=== PATIENT | female | born 1985 | race Caucasian/White ===

== ENCOUNTER 2016-12-05 09:04 | Emergency (ER) | payer BC ==
[2016-12-05] MEDS ORDERED: ALBUTEROL SULFATE 2.5 MG/0.5 ML INH NEB SOLN As Ordered ONE (10:17)
[2016-12-05] MEDS ORDERED: ONDANSETRON 4MG/2ML VIAL (J2405) As Ordered ONE (10:18)
[2016-12-05] MEDS ORDERED: KETOROLAC 30 MG/ML VIAL (J1885) As Ordered ONE (10:18)
[2016-12-05 10:30] LABS: BASO # 0.1 K/mm3 (0.0-0.2); BASO % 1.1 % (0.0-1.0); EOS # 0.2 K/mm3 (0.0-0.50); LARGE UNSTAINED CELL # 0.2 K/mm3 (0.0-0.4); LARGE UNSTAINED CELL % 1.8 % (0.0-4.0); LYMPH # 2.6 K/mm3 (1.5-4.5); LYMPH % 29.3 % (24.0-44.0); MEAN CORPUSCULAR HEMOGLOBIN 30.3 pg (27.0-33.0); MEAN CORPUSCULAR HGB CONC 33.2 g/dl (32.0-36.5); MEAN CORPUSCULAR VOLUME 91.4 fl (80.0-96.0); MONO # 0.4 K/mm3 (0.0-0.8); MONO % 4.9 % (0.0-5.0); NEUTROPHILS # 5.2 K/mm3 (1.8-7.7); NEUTROPHILS % 60.9 % (36.0-66.0); PLATELET COUNT, AUTOMATED 201 k/mm3 (150-450); RED CELL DISTRIBUTION WIDTH 12.5 % (11.5-14.5); WHITE BLOOD COUNT 8.5 K/mm3 (4.0-10.0)
[2016-12-05 10:54] LABS: ALBUMIN 4.6 GM/DL (3.2-5.2); ALBUMIN/GLOBULIN RATIO 1.48 (1.00-1.93); ALKALINE PHOSPHATASE 67 U/L (45-117); ALT/SGPT 22 U/L (12-78); AMYLASE 52 U/L (25-115); ANION GAP 8 MEQ/L (8-16); AST/SGOT 13 U/L (15-37); BILIRUBIN,DIRECT 0.1 MG/DL (0.0-0.2); BILIRUBIN,TOTAL 0.5 MG/DL (0.2-1.0); BLOOD UREA NITROGEN 8 MG/DL (7-18); CALCIUM LEVEL 9.3 MG/DL (8.5-10.1); CARBON DIOXIDE LEVEL 25 MEQ/L (21-32); CHLORIDE LEVEL 110 MEQ/L (98-107); CREATININE FOR GFR 0.76 MG/DL (0.55-1.02); FREE T4 0.95 NG/DL (0.76-1.46); GLOMERULAR FILTRATION RATE > 60.0 (>60); GLUCOSE, FASTING 86 MG/DL (70-105); POTASSIUM SERUM 3.6 MEQ/L (3.5-5.1); SODIUM LEVEL 143 MEQ/L (136-145); TOTAL PROTEIN 7.7 GM/DL (6.4-8.2)
--- NOTE | 2016-12-05 11:16 | REP ---
Chest two views HISTORY: Chest pain Comparison: 05/01/2015 The lungs are clear. The heart is normal in size. The pulmonary vasculature is normal in appearance. The bony structure is intact. IMPRESSION: No acute disease. Signed by Mohinder Montes MD 12/05/2016 11:08 A
--- NOTE | 2016-12-05 11:19 | REP ---
Limited abdominal ultrasound with attention to the right upper quadrant, 12/05/2016 Indication: Biliary colic Comparison: CT of the pelvis 05/12/2015 Findings: Gallbladder measures 7 by 2.7 by 2.5 cm, without cholelithiasis or pericholecystic fluid. The gallbladder wall is 3 mm transverse dimension upper normal range. There is a negative sonographic Gao's sign. Common bile duct is 3.4 mm transverse dimension, within normal limits. Hepatic parenchyma is homogeneous in echotexture without focal lesions. The pancreas is unremarkable in appearance. Right kidney measures 11.8 x 4.9 by 6 cm, without hydronephrosis. Renal cortical echogenicity is within normal limits. Impression: No evidence of cholelithiasis or biliary dilatation Unremarkable liver and pancreas Right kidney without hydronephrosis Signed by yKleigh Hussein MD 12/05/2016 11:10 A
[2016-12-05] MEDS ORDERED: PERCOCET 5MG/325MG TAB As Ordered ONE (11:43)
--- NOTE | 2016-12-05 11:51 | EDDOCDS ---
Nurse's Notes [facility] Name: Yoselyn Qiu Age: 31 yrs Sex: Female : 1985 Arrival Date: 12/05/2016 Time: 09:04 Bed I6 / 28 Private MD: NIRMALA SHIPMAN Diagnosis: Upper abdominal pain, unspecified;Nausea with vomiting, unspecified;Wheezing Presentation: 12/05 09:17 Presenting complaint: Patient states: fever up to like 102 last night. had the chills. srm hasnt felt good for fever weeks. symptoms of diarrhea and abd pain and back pain for a few weeks. now having right groin pain. also felt choked up and tight in upper chest. Presenting complaint: Patient states: states HR was 156 at home. Adult Sepsis Screening: The patient does not have new or worsening altered mentation. Patient's respiratory rate is less than 22. Systolic blood pressure is greater than 100. Patient has a qSOFA score of 0- Negative Sepsis Screen. Suicide/Homicide risk assessment- the patient denies having any suicidal and/or homicidal ideations and does not present with any other emotional, behavioral or mental health complaints. Status: Patient is not a media services director or dependent. Transition of care: patient was not received from another setting of care. 09:17 Acuity: AURELIA Level 3 srm 09:17 Method Of Arrival: Walkin/Carried/Asstd srm Triage Assessment: 09:20 General: Appears in no apparent distress, Behavior is appropriate for age, cooperative. srm Pain: Pain currently is 7 out of 10 on a pain scale. HIV screening NA for this visit Offered previously. [place]: 09:20 LMP N/A - control method srm Historical: - Allergies: Amoxicillin; IV Dye; - Home Meds: 1. Prilosec 20 mg Oral cpDR 2 caps 2 times per day - PMHx: Hypothyroidism; Von Willebrand Disease; - PSHx: D & C; Colonoscopy; - Social history: Smoking status: Patient uses tobacco products, current every day smoker. No barriers to communication noted, The patient speaks fluent Palestinian, Speaks appropriately for age. - Family history: Not pertinent. - : The pt / caregiver states he / she is not on anticoagulants. Home medication list is obtained from the patient. - Exposure Risk Screening:: None identified. Screenin:04 Screening information is obtained from the patient. Fall risk: No risks identified. kr3 Assistance ADL's: requires no assistance with activities of daily living. Abuse/DV Screen: The patient / caregiver reports he/she is: not in a situation that causes fear, pain or injury. Nutritional screening: No deficits noted. Advance Directives: Currently, there is no health care proxy. home support is adequate. Assessment: 10:23 Adult Sepsis Screening: The patient does not have new or worsening altered mentation. dsf Patient's respiratory rate is less than 22. Systolic blood pressure is greater than 100. Patient has a qSOFA score of 0- Negative Sepsis Screen. General: Appears in no apparent distress, Behavior is appropriate for age, cooperative. Pain: Location: right upper quadrant and left upper quadrant Pain currently is 7 out of 10 on a pain scale. Quality of pain is described as sharp. Neurological: Level of Consciousness is awake, alert. Cardiovascular: Capillary refill < 3 seconds. Respiratory: Airway is patent Respiratory effort is even, unlabored, Respiratory pattern is regular, symmetrical. GI: Abdomen is non- distended Reports upper abd pain. Derm: Skin is pink, warm & dry. 11:03 Reassessment: Patient states feeling better. kr3 11:46 General: Appears in no apparent distress, comfortable, Behavior is appropriate for age, dsf cooperative. Pain: Location: left upper quadrant and right upper quadrant Pain currently is 7 out of 10 on a pain scale. Neurological: Level of Consciousness is awake, alert. Cardiovascular: Capillary refill < 3 seconds Heart tones S1 S2 present. Respiratory: Airway is patent Respiratory effort is even, unlabored, Respiratory pattern is regular, symmetrical, Breath sounds are clear bilaterally. GI: Abdomen is non- distended Bowel sounds present X 4 quads. Abd is soft and non tender X 4 quads. Derm: Skin is pink, warm & dry. Vital Signs: 09:06 BP 162 / 96; Pulse 120; Resp 18; Temp 97.9(O); Pulse Ox 100% ; Weight 58.97 kg; Height cmb 5 ft. 2 in. (157.48 cm); Pain 7/10; 11:04 Pain 5/10; kr3 11:43 BP 149 / 90; Pulse 84; Resp 20; Temp 98.2; Pulse Ox 99% ; Pain 7/10; jam1 09:06 Body Mass Index 23.78 (58.97 kg, 157.48 cm) cmb Vitals: 11:05 Log In Time: December 05, 2016 at 09:00. kr3 ED Course: 09:05 Patient visited by Jaja Tucker. cmb 09:05 Patient moved to Waiting cmb 09:06 NIRMALA SHIPMAN is Private Physician. cmb 09:08 Patient moved to Pre RCE cmb 09:18 Triage Initiated srm 09:23 Patient moved to Family 1 kr3 09:30 Elena Butterfield PA-C is PHCP. dt4 09:30 Prince Pastor MD is Attending Physician. dt4 09:30 Patient visited by Elena Butterfield PA-C. dt4 10:00 Patient moved to I mk4 10:23 Patient visited by Jennifer French,DOROTA. kr3 10:23 Cardiac Injury Profile Sent. dsf 10:23 Troponin Sent. dsf 10:23 Amylase Sent. dsf 10:23 Basic Metabolic Profile Sent. dsf 10:23 CBC with Diff Sent. dsf 10:23 Lipase Sent. dsf 10:23 Liver Profile Sent. dsf 10:23 Inserted saline lock: 18 gauge in right antecubital area The patient tolerated the dsf procedure well. 10:24 Patient visited by She Delaney RN. dsf 10:44 Patient moved to Ultrasound am10 10:56 Patient moved to Radiology am10 11:00 Patient moved to bh4 11:03 Patient visited by Jennifer French,DOROTA. kr3 11:05 The patient / caregiver is instructed regarding the plan of care and ED course. Patient moses has correct armband on for positive identification. Placed in gown. Bed in low position. Call light in reach. Side rails up X 1. 11:28 [facility] Payment Agreement was scanned into [employer] and attached to record. lg 11:37 Patient visited by Elena Butterfield PA-C. dt4 11:38 Your own Physician is Referral Physician. dt4 11:41 Chest, 2 View (pa\E\lat) Returned. EDMS 11:41 US Abd Limited Returned. EDMS 11:47 Discontinued lock intact, bleeding controlled, pressure dressing applied, No dsf redness/swelling at site. No procedures done that require assistance. Administered Medications: 10:00 Drug: Albuterol 2.5 mg [albuterol sulfate 2.5 mg/0.5 mL solution for nebulization (0.5 cs15 mL)] Route: Nebulizer; 10:20 Drug: Ondansetron 4 mg [ondansetron HCl 2 mg/mL intravenous solution (2 mL)] Route: kr3 IVP; Site: right antecubital; 11:04 Follow up: Response: Nausea is decreased kr3 10:22 Drug: ketorolac 30 mg [ketorolac 30 mg/mL (1 mL) injection solution (1 mL)] Route: IVP; kr3 Site: right antecubital; 11:04 Follow up: Pain 5/10 Adult; Response: Pain is decreased kr3 10:23 Drug: NS 0.9% 1000 ml [sodium chloride 0.9 % intravenous solution] Route: IV; Rate: kr3 bolus; Site: right antecubital; 11:47 Follow up: IV Status: Completed infusion; IV Intake: 1000ml dsf 11:45 Drug: oxyCODONE-acetaminophen 1 tabs [oxycodone-acetaminophen 5 mg-325 mg tablet (1 dsf tabs)] Route: PO; 11:50 Follow up: Response: Confirmed pt not driving.; Pt left department before re-evaluation dsf is appropriate Point of Care Testing: Urine : 10:17 hCG Reading: Negative; jam1 Ranges: Intake: 11:47 IV: 1000.00ml; Total: 1000.00ml. dsf RT: 10:24 Initial Med Neb Given as ordered. Respiratory: Respiratory effort is unlabored, cs15 Respiratory pattern is regular Breath sounds are clear bilaterally. Order Results: Lab Order: Amylase; SPEC'M 12/05/16 10:18 Test: AMYLASE; Value: 52; Range: 25-115; Units: U/L; Status: F Lab Order: Basic Metabolic Profile; SPEC'M 12/05/16 10:18 Test: GLUCOSE, FASTING; Value: 86; Range: 70-105; Units: MG/DL; Status: F Test: BLOOD UREA NITROGEN; Value: 8; Range: 7-18; Units: MG/DL; Status: F Test: CREATININE FOR GFR; Value: 0.76; Range: 0.55-1.02; Units: MG/DL; Status: F Test: GLOMERULAR FILTRATION RATE; Value: > 60.0; Range: >60; Status: F Test: SODIUM LEVEL; Value: 143; Range: 136-145; Units: MEQ/L; Status: F Test: POTASSIUM SERUM; Value: 3.6; Range: 3.5-5.1; Units: MEQ/L; Status: F Test: CHLORIDE LEVEL; Value: 110; Range: 98-107; Abnormal: Above high normal; Units: MEQ/L; Status: F Test: CARBON DIOXIDE LEVEL; Value: 25; Range: 21-32; Units: MEQ/L; Status: F Test: ANION GAP; Value: 8; Range: 8-16; Units: MEQ/L; Status: F Test: CALCIUM LEVEL; Value: 9.3; Range: 8.5-10.1; Units: MG/DL; Status: F Test Note: ; Units are mL/min/1.73 m2 Chronic Kidney Disease Staging per NKF: Stage I & II GFR >=60 Normal to Mildly Decreased Stage III GFR 30-59 Moderately Decreased Stage IV GFR 15-29 Severely Decreased Stage V GFR <15 Very Little GFR Left ESRD GFR <15 on TROLLEY OPERATOR Lab Order: CBC with Diff; SPEC'M 12/05/16 10:18 Test: WHITE BLOOD COUNT; Value: 8.5; Range: 4.0-10.0; Units: K/mm3; Status: F Test: RED BLOOD COUNT; Value: 4.91; Range: 4.00-5.40; Units: M/mm3; Status: F Test: HEMOGLOBIN; Value: 14.9; Range: 12.0-16.0; Units: g/dl; Status: F Test: HEMATOCRIT; Value: 44.8; Range: 36.0-47.0; Units: %; Status: F Test: MEAN CORPUSCULAR VOLUME; Value: 91.4; Range: 80.0-96.0; Units: fl; Status: F Test: MEAN CORPUSCULAR HEMOGLOBIN; Value: 30.3; Range: 27.0-33.0; Units: pg; Status: F Test: MEAN CORPUSCULAR HGB CONC; Value: 33.2; Range: 32.0-36.5; Units: g/dl; Status: F Test: RED CELL DISTRIBUTION WIDTH; Value: 12.5; Range: 11.5-14.5; Units: %; Status: F Test: PLATELET COUNT, AUTOMATED; Value: 201; Range: 150-450; Units: k/mm3; Status: F Test: NEUTROPHILS %; Value: 60.9; Range: 36.0-66.0; Units: %; Status: F Test: LYMPH %; Value: 29.3; Range: 24.0-44.0; Units: %; Status: F Test: MONO %; Value: 4.9; Range: 0.0-5.0; Units: %; Status: F Test: EOS %; Value: 2.0; Range: 0.0-3.0; Units: %; Status: F Test: BASO %; Value: 1.1; Range: 0.0-1.0; Abnormal: Above high normal; Units: %; Status: F Test: LARGE UNSTAINED CELL %; Value: 1.8; Range: 0.0-4.0; Units: %; Status: F Test: NEUTROPHILS #; Value: 5.2; Range: 1.8-7.7; Units: K/mm3; Status: F Test: LYMPH #; Value: 2.6; Range: 1.5-4.5; Units: K/mm3; Status: F Test: MONO #; Value: 0.4; Range: 0.0-0.8; Units: K/mm3; Status: F Test: EOS #; Value: 0.2; Range: 0.0-0.50; Units: K/mm3; Status: F Test: BASO #; Value: 0.1; Range: 0.0-0.2; Units: K/mm3; Status: F Test: LARGE UNSTAINED CELL #; Value: 0.2; Range: 0.0-0.4; Units: K/mm3; Status: F Lab Order: Lipase; SPEC'M 12/05/16 10:18 Test: LIPASE; Value: 127; Range: 73-393; Units: U/L; Status: F Lab Order: Liver Profile; SPEC'M 12/05/16 10:18 Test: AST/SGOT; Value: 13; Range: 15-37; Abnormal: Below low normal; Units: U/L; Status: F Test: ALT/SGPT; Value: 22; Range: 12-78; Units: U/L; Status: F Test: ALKALINE PHOSPHATASE; Value: 67; Range: 45-117; Units: U/L; Status: F Test: BILIRUBIN,TOTAL; Value: 0.5; Range: 0.2-1.0; Units: MG/DL; Status: F Test: BILIRUBIN,DIRECT; Value: 0.1; Range: 0.0-0.2; Units: MG/DL; Status: F Test: TOTAL PROTEIN; Value: 7.7; Range: 6.4-8.2; Units: GM/DL; Status: F Test: ALBUMIN; Value: 4.6; Range: 3.2-5.2; Units: GM/DL; Status: F Test: ALBUMIN/GLOBULIN RATIO; Value: 1.48; Range: 1.00-1.93; Status: F Lab Order: Troponin; SPEC'M 12/05/16 10:18 Test: TROPONIN I; Value: < 0.02; Range: < 0.10; Units: NG/ML; Status: F Test Note: ; Troponin I Reference Interval for [employer] LOCI: 99th Percentile= 0.00-0.045 ng/ml Risk Stratification: <= 0.10 ng/ml Decreased Risk for Adverse Clinical Events. 0.10-1.50 ng/ml Increased Risk for Adverse Clinical Events. Evaluation of additional criterion and/or repeat testing in 2-6 hours is suggested to rule out myocardial damage. >= 1.50 ng/ml Indicative of Myocardial Injury. Lab Order: Cardiac Injury Profile; SPEC'M 12/05/16 10:18 Test: CPK CREATINE PHOSPHOKINASE; Value: 72; Range: 26-192; Units: U/L; Status: F Test: CK-MB VALUE MASS; Value: 1.1; Range: 0.0-3.6; Units: NG/ML; Status: F Test: MB/CK RELATIVE INDEX; Value: 1.52; Range: < OR =4; Status: F Test Note: ; DIAGNOSIS CRITERIA MMB ng/ml Relative Index (RI) NON-AMI < or = 5 N/A PARIKH ZONE > 5 < or = 4 AMI > 5 > 4 Lab Order: TSH with Free T4; SPEC'M 12/05/16 10:18 Test: THYROID STIMULATING HORMONE; Value: 1.430; Range: 0.358-3.740; Units: uIU/ML; Status: F Test: FREE T4; Value: 0.95; Range: 0.76-1.46; Units: NG/DL; Status: F Radiology Order: Chest, 2 View (pa\E\lat) Test: Chest, 2 View (pa\E\lat) REASON FOR EXAMINATION: Chest Pain; Chest two views; ; HISTORY: Chest pain; ; Comparison: 05/01/2015; ; The lungs are clear. The heart is normal in size. The pulmonary vasculature is; normal in appearance. The bony structure is intact.; ; IMPRESSION: No acute disease.; ; ; Signed by; Mohinder Montes MD 12/05/2016 11:08 A; Radiology Order: US Abd Limited Test: US Abd Limited REASON FOR EXAMINATION: Biliary Colic; Limited abdominal ultrasound with attention to the right upper quadrant,; 12/05/2016; ; Indication: Biliary colic; ; Comparison: CT of the pelvis 05/12/2015; ; Findings: Gallbladder measures 7 by 2.7 by 2.5 cm, without cholelithiasis or; pericholecystic fluid. The gallbladder wall is 3 mm transverse dimension upper; normal range. There is a negative sonographic Gao's sign.; ; Common bile duct is 3.4 mm transverse dimension, within normal limits.; ; Hepatic parenchyma is homogeneous in echotexture without focal lesions.; ; The pancreas is unremarkable in appearance.; ; Right kidney measures 11.8 x 4.9 by 6 cm, without hydronephrosis. Renal cortical; echogenicity is within normal limits.; ; Impression:; ; No evidence of cholelithiasis or biliary dilatation; ; Unremarkable liver and pancreas; ; Right kidney without hydronephrosis; ; ; Signed by; Kyleigh Hussein MD 12/05/2016 11:10 A; Outcome: 11:04 Ultrasound Study completed. kr3 11:39 Discharge ordered by Provider. dt4 11:46 Discharge Assessment: Patient awake, alert and oriented x 3. No cognitive and/or dsf functional deficits noted. Patient verbalized understanding of disposition instructions. patient administered narcotics - yes. Pt provided with safe discharge. 11:50 The following High Risk Discharge criteria are identified: None. Discharged to home dsf ambulatory. Condition: stable. Discharge instructions given to patient, Instructed on discharge instructions, follow up and referral plans. medication usage, no driving heavy equipment, Demonstrated understanding of instructions, medications, Pt was receptive of discharge instructions/ teaching. Prescriptions given X 1. Property sent home with patient. 11:50 Patient left the ED. dsf Signatures: Dispatcher [employer] EDMS Emily Roy, RN RN srm Nidia Gao, FIBERGLASSER FIBERGLASSER jam1 Nay Castillo, Kendall Reg lg Jennifer French,RN RN kr3 Uyen Mensah Beth 4 She Delaney,RN RN f Jaja Tucker Margaret RN RN mk4 Elena Butterfield PAErma PAErma dt4 Ulices Velez,RT RT cs15 DIAMOND
--- NOTE | 2016-12-05 11:51 | EDDOCDS ---
Physician Documentation [facility] Name: Yoselyn Qiu Age: 31 yrs Sex: Female : 1985 Arrival Date: 12/05/2016 Time: 09:04 Bed I6 / 28 Private MD: NIRMALA SHIPMAN Disposition: 12/05/16 11:39 Discharged to Home/Self Care. Impression: Upper abdominal pain, unspecified, Nausea with vomiting, unspecified, Wheezing. - Condition is Stable. - Discharge Instructions: Abdominal Pain, Adult, Nausea and Vomiting. - Prescriptions for Percocet 5- 325 mg Oral Tablet - take 1 tablet by ORAL route every 6 hours As needed MDD: 4 tabs; 15 tablet. - Medication Reconciliation, Local Pharmacy Hours form. - Follow up: Emergency Department; When: As needed; Reason: Worsening of conditions. Follow up: Your own Physician; When: AT YOUR SCHEDULED APPOINTMENT ON 01/15/17; Reason: Wound/Symptom Recheck, Recheck today's complaints, Continuance of care. - Problem is new. - Symptoms have improved. Historical: - Allergies: Amoxicillin; IV Dye; - Home Meds: 1. Prilosec 20 mg Oral cpDR 2 caps 2 times per day - PMHx: Hypothyroidism; Von Willebrand Disease; - PSHx: D & C; Colonoscopy; - Social history: Smoking status: Patient uses tobacco products, current every day smoker. No barriers to communication noted, The patient speaks fluent Italian, Speaks appropriately for age. - Family history: Not pertinent. - : The pt / caregiver states he / she is not on anticoagulants. Home medication list is obtained from the patient. - Exposure Risk Screening:: None identified. 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 2 in. (157.48 cm); Pain 7/10; 11:04 Pain 5/10; kr3 11:43 BP 149 / 90; Pulse 84; Resp 20; Temp 98.2; Pulse Ox 99% ; Pain 7/10; jam1 09:06 Body Mass Index 23.78 (58.97 kg, 157.48 cm) cmb MDM: 09:40 Financial registration complete. lg 09:53 NS 0.9% 1000 ml IV at bolus once ordered. dt4 09:53 Ondansetron 4 mg IVP once ordered. dt4 09:53 ketorolac 30 mg IVP once ordered. dt4 09:53 IV Saline Lock ordered. dt4 09:53 Undress patient appropriately for examination ordered. dt4 09:53 Albuterol 2.5 mg Nebulizer once ordered. dt4 09:53 UCG by Nursing ordered. dt4 09:54 Amylase Ordered. EDMS 09:54 Basic Metabolic Profile Ordered. EDMS 09:54 CBC with Diff Ordered. EDMS 09:54 Lipase Ordered. EDMS 09:54 Liver Profile Ordered. EDMS 09:54 Troponin Ordered. EDMS 09:54 Cardiac Injury Profile Ordered. EDMS 09:54 TSH with Free T4 Ordered. EDMS 09:54 NOTHING BY MOUTH+DIET ordered. EDMS 09:54 Chest, 2 View (pa\E\lat) Ordered. EDMS 09:54 ECG WITH READING ER PHYS+CARDIAG ordered. EDMS 09:55 US Abd Limited Ordered. EDMS 10:02 ED course: PT C/O MULTIPLE SYMPTOMS TODAY INCLUDING, NOT FEELING WELL OVER THE PAST 2 dt4 YEARS, CHEST PAIN, ABDOMINAL PAIN, N/V. PT STATES SHE STOPPED TAKING HER THYROID MEDICATION 2 YEARS AGO AND CURRENTLY DOES NOT HAVE A PCP. STATES ESTABLISHING WITH DR. SHIPMAN ON 01/15/17. . 11:05 Basic Metabolic Profile Reviewed. dt4 11:05 CBC with Diff Reviewed. dt4 11:05 Liver Profile Reviewed. dt4 11:05 Amylase Reviewed. dt4 11:05 Lipase Reviewed. dt4 11:05 Troponin Reviewed. dt4 11:05 Cardiac Injury Profile Reviewed. dt4 11:05 TSH with Free T4 Reviewed. dt4 11:28 [facility] Payment Agreement was scanned into [employer] and attached to record. lg 11:37 oxyCODONE-acetaminophen 5 mg-325 mg 1 tabs PO once ordered. dt4 Point of Care Testing: Urine : 10:17 hCG Reading: Negative; jam1 Ranges: Administered Medications: 10:00 Drug: Albuterol 2.5 mg [albuterol sulfate 2.5 mg/0.5 mL solution for nebulization (0.5 cs15 mL)] Route: Nebulizer; 10:20 Drug: Ondansetron 4 mg [ondansetron HCl 2 mg/mL intravenous solution (2 mL)] Route: kr3 IVP; Site: right antecubital; 11:04 Follow up: Response: Nausea is decreased kr3 10:22 Drug: ketorolac 30 mg [ketorolac 30 mg/mL (1 mL) injection solution (1 mL)] Route: IVP; kr3 Site: right antecubital; 11:04 Follow up: Pain 5/10 Adult; Response: Pain is decreased kr3 10:23 Drug: NS 0.9% 1000 ml [sodium chloride 0.9 % intravenous solution] Route: IV; Rate: kr3 bolus; Site: right antecubital; 11:47 Follow up: IV Status: Completed infusion; IV Intake: 1000ml dsf 11:45 Drug: oxyCODONE-acetaminophen 1 tabs [oxycodone-acetaminophen 5 mg-325 mg tablet (1 dsf tabs)] Route: PO; 11:50 Follow up: Response: Confirmed pt not driving.; Pt left department before re-evaluation dsf is appropriate Signatures: Dispatcher [employer] EDEmily Lucas, DOROTA RN srm Nay Castillo, Reg Reg lg She Delaney RN RN dsf Elena Butterfield PA-C PA-C dt4 Jennifer French RN kr3 Ulices Velez RT cs15 The chart was reviewed and I authenticate all verbal orders and agree with the evaluation and treatment provided.Attachments: 11:28 [facility] Payment Agreement lg MTDD
--- NOTE | 2016-12-06 07:22 | ECGEPIP ---
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
--- NOTE | 2016-12-07 12:51 | EDDOCDS ---
Physician Documentation [facility] Name: Yoselyn Qiu Age: 31 yrs Sex: Female : 1985 Arrival Date: 12/05/2016 Time: 09:04 Bed I6 / 28 Private MD: NIRMALA SHIPMAN Disposition: 12/05/16 11:39 Discharged to Home/Self Care. Impression: Upper abdominal pain, unspecified, Nausea with vomiting, unspecified, Wheezing. - Condition is Stable. - Discharge Instructions: Abdominal Pain, Adult, Nausea and Vomiting. - Prescriptions for Percocet 5- 325 mg Oral Tablet - take 1 tablet by ORAL route every 6 hours As needed MDD: 4 tabs; 15 tablet. - Medication Reconciliation, Local Pharmacy Hours form. - Follow up: Emergency Department; When: As needed; Reason: Worsening of conditions. Follow up: Your own Physician; When: AT YOUR SCHEDULED APPOINTMENT ON 01/15/17; Reason: Wound/Symptom Recheck, Recheck today's complaints, Continuance of care. - Problem is new. - Symptoms have improved. Historical: - Allergies: Amoxicillin; IV Dye; - Home Meds: 1. Prilosec 20 mg Oral cpDR 2 caps 2 times per day - PMHx: Hypothyroidism; Von Willebrand Disease; - PSHx: D & C; Colonoscopy; - Social history: Smoking status: Patient uses tobacco products, current every day smoker. No barriers to communication noted, The patient speaks fluent Albanian, Speaks appropriately for age. - Family history: Not pertinent. - : The pt / caregiver states he / she is not on anticoagulants. Home medication list is obtained from the patient. - Exposure Risk Screening:: None identified. 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 2 in. (157.48 cm); Pain 7/10; 11:04 Pain 5/10; kr3 11:43 BP 149 / 90; Pulse 84; Resp 20; Temp 98.2; Pulse Ox 99% ; Pain 7/10; jam1 09:06 Body Mass Index 23.78 (58.97 kg, 157.48 cm) cmb MDM: 09:40 Financial registration complete. lg 09:53 NS 0.9% 1000 ml IV at bolus once ordered. dt4 09:53 Ondansetron 4 mg IVP once ordered. dt4 09:53 ketorolac 30 mg IVP once ordered. dt4 09:53 IV Saline Lock ordered. dt4 09:53 Undress patient appropriately for examination ordered. dt4 09:53 Albuterol 2.5 mg Nebulizer once ordered. dt4 09:53 UCG by Nursing ordered. dt4 09:54 Amylase Ordered. EDMS 09:54 Basic Metabolic Profile Ordered. EDMS 09:54 CBC with Diff Ordered. EDMS 09:54 Lipase Ordered. EDMS 09:54 Liver Profile Ordered. EDMS 09:54 Troponin Ordered. EDMS 09:54 Cardiac Injury Profile Ordered. EDMS 09:54 TSH with Free T4 Ordered. EDMS 09:54 NOTHING BY MOUTH+DIET ordered. EDMS 09:54 Chest, 2 View (pa\E\lat) Ordered. EDMS 09:54 ECG WITH READING ER PHYS+CARDIAG ordered. EDMS 09:55 US Abd Limited Ordered. EDMS 10:02 ED course: PT C/O MULTIPLE SYMPTOMS TODAY INCLUDING, NOT FEELING WELL OVER THE PAST 2 dt4 YEARS, CHEST PAIN, ABDOMINAL PAIN, N/V. PT STATES SHE STOPPED TAKING HER THYROID MEDICATION 2 YEARS AGO AND CURRENTLY DOES NOT HAVE A PCP. STATES ESTABLISHING WITH DR. SHIPMAN ON 01/15/17. . 11:05 Basic Metabolic Profile Reviewed. dt4 11:05 CBC with Diff Reviewed. dt4 11:05 Liver Profile Reviewed. dt4 11:05 Amylase Reviewed. dt4 11:05 Lipase Reviewed. dt4 11:05 Troponin Reviewed. dt4 11:05 Cardiac Injury Profile Reviewed. dt4 11:05 TSH with Free T4 Reviewed. dt4 11:28 [facility] [place] Agreement was scanned into [employer] and attached to record. lg 11:37 oxyCODONE-acetaminophen 5 mg-325 mg 1 tabs PO once ordered. dt4 13:39 T-Sheet-- Draft Copy was scanned into [employer] and attached to record. gb 13:39 ECG/EKG was scanned into [employer] and attached to record. gb 13:40 Radiology Report was scanned into [employer] and attached to record. gb Point of Care Testing: Urine : 10:17 hCG Reading: Negative; jam1 Ranges: Administered Medications: 10:00 Drug: Albuterol 2.5 mg [albuterol sulfate 2.5 mg/0.5 mL solution for nebulization (0.5 cs15 mL)] Route: Nebulizer; 10:20 Drug: Ondansetron 4 mg [ondansetron HCl 2 mg/mL intravenous solution (2 mL)] Route: kr3 IVP; Site: right antecubital; 11:04 Follow up: Response: Nausea is decreased kr3 10:22 Drug: ketorolac 30 mg [ketorolac 30 mg/mL (1 mL) injection solution (1 mL)] Route: IVP; kr3 Site: right antecubital; 11:04 Follow up: Pain 5/10 Adult; Response: Pain is decreased kr3 10:23 Drug: NS 0.9% 1000 ml [sodium chloride 0.9 % intravenous solution] Route: IV; Rate: kr3 bolus; Site: right antecubital; 11:47 Follow up: IV Status: Completed infusion; IV Intake: 1000ml dsf 11:45 Drug: oxyCODONE-acetaminophen 1 tabs [oxycodone-acetaminophen 5 mg-325 mg tablet (1 dsf tabs)] Route: PO; 11:50 Follow up: Response: Confirmed pt not driving.; Pt left department before re-evaluation dsf is appropriate Signatures: Dispatcher [employer] EDEmily Lucas RN RN [facility] Aleida Hobson, Reg Reg gb Nay Castillo, Reg Reg lg She Delaney RN RN dsf Elena Butterfield PA-C PA-C dt4 Jennifer French RN kr3 Ulices Velez RT cs15 The chart was reviewed and I authenticate all verbal orders and agree with the evaluation and treatment provided.Attachments: 11:28 [facility] [place] Agreement lg 13:39 T-Sheet-- Draft Copy gb 13:39 ECG/EKG gb Chart Complete MTDD
--- NOTE | 2016-12-07 12:51 | EDDOCDS ---
Nurse's Notes [facility] Name: Yoselyn Qiu Age: 31 yrs Sex: Female : 1985 Arrival Date: 12/05/2016 Time: 09:04 Bed I6 / 28 Private MD: NIRMALA SHIPMAN Diagnosis: Upper abdominal pain, unspecified;Nausea with vomiting, unspecified;Wheezing Presentation: 12/05 09:17 Presenting complaint: Patient states: fever up to like 102 last night. had the chills. srm hasnt felt good for fever weeks. symptoms of diarrhea and abd pain and back pain for a few weeks. now having right groin pain. also felt choked up and tight in upper chest. Presenting complaint: Patient states: states HR was 156 at home. Adult Sepsis Screening: The patient does not have new or worsening altered mentation. Patient's respiratory rate is less than 22. Systolic blood pressure is greater than 100. Patient has a qSOFA score of 0- Negative Sepsis Screen. Suicide/Homicide risk assessment- the patient denies having any suicidal and/or homicidal ideations and does not present with any other emotional, behavioral or mental health complaints. 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 Transition of care: patient was not received from another setting of care. 09:17 Acuity: AURELIA Level 3 srm 09:17 Method Of Arrival: Walkin/Carried/Asstd srm Triage Assessment: 09:20 General: Appears in no apparent distress, Behavior is appropriate for age, cooperative. srm Pain: Pain currently is 7 out of 10 on a pain scale. HIV screening NA for this visit Offered previously. 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 Prilosec 20 mg Oral cpDR 2 caps 2 times per day - PMHx: Hypothyroidism; Von Willebrand Disease; - PSHx: D & C; Colonoscopy; - Social history: Smoking status: Patient uses tobacco products, current every day smoker. No barriers to communication noted, The patient speaks fluent Hungarian, Speaks appropriately for age. - Family history: Not pertinent. - : The pt / caregiver states he / she is not on anticoagulants. Home medication list is obtained from the patient. - Exposure Risk Screening:: None identified. Screenin:04 Screening information is obtained from the patient. Fall risk: No risks identified. kr3 Assistance ADL's: requires no assistance with activities of daily living. Abuse/DV Screen: The patient / caregiver reports he/she is: not in a situation that causes fear, pain or injury. Nutritional screening: No deficits noted. Advance Directives: Currently, there is no health care proxy. home support is adequate. Assessment: 10:23 Adult Sepsis Screening: The patient does not have new or worsening altered mentation. dsf Patient's respiratory rate is less than 22. Systolic blood pressure is greater than 100. Patient has a qSOFA score of 0- Negative Sepsis Screen. General: Appears in no apparent distress, Behavior is appropriate for age, cooperative. Pain: Location: right upper quadrant and left upper quadrant Pain currently is 7 out of 10 on a pain scale. Quality of pain is described as sharp. Neurological: Level of Consciousness is awake, alert. Cardiovascular: Capillary refill < 3 seconds. Respiratory: Airway is patent Respiratory effort is even, unlabored, Respiratory pattern is regular, symmetrical. GI: Abdomen is non- distended Reports upper abd pain. Derm: Skin is pink, warm & dry. 11:03 Reassessment: Patient states feeling better. kr3 11:46 General: Appears in no apparent distress, comfortable, Behavior is appropriate for age, dsf cooperative. Pain: Location: left upper quadrant and right upper quadrant Pain currently is 7 out of 10 on a pain scale. Neurological: Level of Consciousness is awake, alert. Cardiovascular: Capillary refill < 3 seconds Heart tones S1 S2 present. Respiratory: Airway is patent Respiratory effort is even, unlabored, Respiratory pattern is regular, symmetrical, Breath sounds are clear bilaterally. GI: Abdomen is non- distended Bowel sounds present X 4 quads. Abd is soft and non tender X 4 quads. Derm: Skin is pink, warm & dry. Vital Signs: 09:06 BP 162 / 96; Pulse 120; Resp 18; Temp 97.9(O); Pulse Ox 100% ; Weight 58.97 kg; Height cmb 5 ft. 2 in. (157.48 cm); Pain 7/10; 11:04 Pain 5/10; kr3 11:43 BP 149 / 90; Pulse 84; Resp 20; Temp 98.2; Pulse Ox 99% ; Pain 7/10; jam1 09:06 Body Mass Index 23.78 (58.97 kg, 157.48 cm) cmb Vitals: 11:05 Log In Time: December 05, 2016 at 09:00. kr3 ED Course: 09:05 Patient visited by Jaja Tucker. cmb 09:05 Patient moved to Waiting cmb 09:06 NIRMALA SHIPMAN is Private Physician. cmb 09:08 Patient moved to Pre RCE cmb 09:18 Triage Initiated srm 09:23 Patient moved to Family 1 kr3 09:30 Elena Butterfield PA-C is PHCP. dt4 09:30 Prince Pastor MD is Attending Physician. dt4 09:30 Patient visited by Elena Butterfield PA-C. dt4 10:00 Patient moved to I mk4 10:23 Patient visited by Jennifer French,[place]. kr3 10:23 Cardiac Injury Profile Sent. dsf 10:23 Troponin Sent. dsf 10:23 Amylase Sent. dsf 10:23 Basic Metabolic Profile Sent. dsf 10:23 CBC with Diff Sent. dsf 10:23 Lipase Sent. dsf 10:23 Liver Profile Sent. dsf 10:23 Inserted saline lock: 18 gauge in right antecubital area The patient tolerated the dsf procedure well. 10:24 Patient visited by She Delaney RN. dsf 10:44 Patient moved to Ultrasound am10 10:56 Patient moved to Radiology am10 11:00 Patient moved to bh4 11:03 Patient visited by Jennifer French,[place]. kr3 11:05 The patient / caregiver is instructed regarding the plan of care and ED course. Patient moses has correct armband on for positive identification. Placed in gown. Bed in low position. Call light in reach. Side rails up X 1. 11:28 [facility] [place] Agreement was scanned into [employer] and attached to record. lg 11:37 Patient visited by Elena Butterfield PA-C. dt4 11:38 Your own Physician is Referral Physician. dt4 11:41 Chest, 2 View (pa\E\lat) Returned. EDMS 11:41 US Abd Limited Returned. EDMS 11:47 Discontinued lock intact, bleeding controlled, pressure dressing applied, No dsf redness/swelling at site. No procedures done that require assistance. 13:39 T-Sheet-- Draft Copy was scanned into [employer] and attached to record. gb 13:39 ECG/EKG was scanned into [employer] and attached to record. gb 13:40 Radiology Report was scanned into [employer] and attached to record. gb 12/06 07:41 EKG-ADULT Returned. EDMS Administered Medications: 12/05 10:00 Drug: Albuterol 2.5 mg [albuterol sulfate 2.5 mg/0.5 mL solution for nebulization (0.5 cs15 mL)] Route: Nebulizer; 10:20 Drug: Ondansetron 4 mg [ondansetron HCl 2 mg/mL intravenous solution (2 mL)] Route: kr3 IVP; Site: right antecubital; 11:04 Follow up: Response: Nausea is decreased kr3 10:22 Drug: ketorolac 30 mg [ketorolac 30 mg/mL (1 mL) injection solution (1 mL)] Route: IVP; kr3 Site: right antecubital; 11:04 Follow up: Pain 5/10 Adult; Response: Pain is decreased kr3 10:23 Drug: NS 0.9% 1000 ml [sodium chloride 0.9 % intravenous solution] Route: IV; Rate: kr3 bolus; Site: right antecubital; 11:47 Follow up: IV Status: Completed infusion; IV Intake: 1000ml dsf 11:45 Drug: oxyCODONE-acetaminophen 1 tabs [oxycodone-acetaminophen 5 mg-325 mg tablet (1 dsf tabs)] Route: PO; 11:50 Follow up: Response: Confirmed pt not driving.; Pt left department before re-evaluation dsf is appropriate Point of Care Testing: Urine : 10:17 hCG Reading: Negative; jam1 Ranges: Intake: 11:47 IV: 1000.00ml; Total: 1000.00ml. dsf RT: 10:24 Initial Med Neb Given as ordered. Respiratory: Respiratory effort is unlabored, cs15 Respiratory pattern is regular Breath sounds are clear bilaterally. Order Results: Lab Order: Amylase; SPEC'M 12/05/16 10:18 Test: AMYLASE; Value: 52; Range: 25-115; Units: U/L; Status: F Lab Order: Basic Metabolic Profile; SPEC'M 12/05/16 10:18 Test: GLUCOSE, FASTING; Value: 86; Range: 70-105; Units: MG/DL; Status: F Test: BLOOD UREA NITROGEN; Value: 8; Range: 7-18; Units: MG/DL; Status: F Test: CREATININE FOR GFR; Value: 0.76; Range: 0.55-1.02; Units: MG/DL; Status: F Test: GLOMERULAR FILTRATION RATE; Value: > 60.0; Range: >60; Status: F Test: SODIUM LEVEL; Value: 143; Range: 136-145; Units: MEQ/L; Status: F Test: POTASSIUM SERUM; Value: 3.6; Range: 3.5-5.1; Units: MEQ/L; Status: F Test: CHLORIDE LEVEL; Value: 110; Range: 98-107; Abnormal: Above high normal; Units: MEQ/L; Status: F Test: CARBON DIOXIDE LEVEL; Value: 25; Range: 21-32; Units: MEQ/L; Status: F Test: ANION GAP; Value: 8; Range: 8-16; Units: MEQ/L; Status: F Test: CALCIUM LEVEL; Value: 9.3; Range: 8.5-10.1; Units: MG/DL; Status: F Test Note: ; Units are mL/min/1.73 m2 Chronic Kidney Disease Staging per NKF: Stage I & II GFR >=60 Normal to Mildly Decreased Stage III GFR 30-59 Moderately Decreased Stage IV GFR 15-29 Severely Decreased Stage V GFR <15 Very Little GFR Left ESRD GFR <15 on FOOD CONCESSION MANAGER Lab Order: CBC with Diff; SPEC'M 12/05/16 10:18 Test: WHITE BLOOD COUNT; Value: 8.5; Range: 4.0-10.0; Units: K/mm3; Status: F Test: RED BLOOD COUNT; Value: 4.91; Range: 4.00-5.40; Units: M/mm3; Status: F Test: HEMOGLOBIN; Value: 14.9; Range: 12.0-16.0; Units: g/dl; Status: F Test: HEMATOCRIT; Value: 44.8; Range: 36.0-47.0; Units: %; Status: F Test: MEAN CORPUSCULAR VOLUME; Value: 91.4; Range: 80.0-96.0; Units: fl; Status: F Test: MEAN CORPUSCULAR HEMOGLOBIN; Value: 30.3; Range: 27.0-33.0; Units: pg; Status: F Test: MEAN CORPUSCULAR HGB CONC; Value: 33.2; Range: 32.0-36.5; Units: g/dl; Status: F Test: RED CELL DISTRIBUTION WIDTH; Value: 12.5; Range: 11.5-14.5; Units: %; Status: F Test: PLATELET COUNT, AUTOMATED; Value: 201; Range: 150-450; Units: k/mm3; Status: F Test: NEUTROPHILS %; Value: 60.9; Range: 36.0-66.0; Units: %; Status: F Test: LYMPH %; Value: 29.3; Range: 24.0-44.0; Units: %; Status: F Test: MONO %; Value: 4.9; Range: 0.0-5.0; Units: %; Status: F Test: EOS %; Value: 2.0; Range: 0.0-3.0; Units: %; Status: F Test: BASO %; Value: 1.1; Range: 0.0-1.0; Abnormal: Above high normal; Units: %; Status: F Test: LARGE UNSTAINED CELL %; Value: 1.8; Range: 0.0-4.0; Units: %; Status: F Test: NEUTROPHILS #; Value: 5.2; Range: 1.8-7.7; Units: K/mm3; Status: F Test: LYMPH #; Value: 2.6; Range: 1.5-4.5; Units: K/mm3; Status: F Test: MONO #; Value: 0.4; Range: 0.0-0.8; Units: K/mm3; Status: F Test: EOS #; Value: 0.2; Range: 0.0-0.50; Units: K/mm3; Status: F Test: BASO #; Value: 0.1; Range: 0.0-0.2; Units: K/mm3; Status: F Test: LARGE UNSTAINED CELL #; Value: 0.2; Range: 0.0-0.4; Units: K/mm3; Status: F Lab Order: Lipase; SPEC'M 12/05/16 10:18 Test: LIPASE; Value: 127; Range: 73-393; Units: U/L; Status: F Lab Order: Liver Profile; SPEC'M 12/05/16 10:18 Test: AST/SGOT; Value: 13; Range: 15-37; Abnormal: Below low normal; Units: U/L; Status: F Test: ALT/SGPT; Value: 22; Range: 12-78; Units: U/L; Status: F Test: ALKALINE PHOSPHATASE; Value: 67; Range: 45-117; Units: U/L; Status: F Test: BILIRUBIN,TOTAL; Value: 0.5; Range: 0.2-1.0; Units: MG/DL; Status: F Test: BILIRUBIN,DIRECT; Value: 0.1; Range: 0.0-0.2; Units: MG/DL; Status: F Test: TOTAL PROTEIN; Value: 7.7; Range: 6.4-8.2; Units: GM/DL; Status: F Test: ALBUMIN; Value: 4.6; Range: 3.2-5.2; Units: GM/DL; Status: F Test: ALBUMIN/GLOBULIN RATIO; Value: 1.48; Range: 1.00-1.93; Status: F Lab Order: Troponin; SPEC'M 12/05/16 10:18 Test: TROPONIN I; Value: < 0.02; Range: < 0.10; Units: NG/ML; Status: F Test Note: ; Troponin I Reference Interval for [place] LOCI: 99th Percentile= 0.00-0.045 ng/ml Risk Stratification: <= 0.10 ng/ml Decreased Risk for Adverse Clinical Events. 0.10-1.50 ng/ml Increased Risk for Adverse Clinical Events. Evaluation of additional criterion and/or repeat testing in 2-6 hours is suggested to rule out myocardial damage. >= 1.50 ng/ml Indicative of Myocardial Injury. Lab Order: Cardiac Injury Profile; SPEC'M 12/05/16 10:18 Test: CPK CREATINE PHOSPHOKINASE; Value: 72; Range: 26-192; Units: U/L; Status: F Test: CK-MB VALUE MASS; Value: 1.1; Range: 0.0-3.6; Units: NG/ML; Status: F Test: MB/CK RELATIVE INDEX; Value: 1.52; Range: < OR =4; Status: F Test Note: ; DIAGNOSIS CRITERIA MMB ng/ml Relative Index (RI) NON-AMI < or = 5 N/A PARIKH ZONE > 5 < or = 4 AMI > 5 > 4 Lab Order: TSH with Free T4; SPEC'M 12/05/16 10:18 Test: THYROID STIMULATING HORMONE; Value: 1.430; Range: 0.358-3.740; Units: uIU/ML; Status: F Test: FREE T4; Value: 0.95; Range: 0.76-1.46; Units: NG/DL; Status: F Radiology Order: Chest, 2 View (pa\E\lat) Test: Chest, 2 View (pa\E\lat) REASON FOR EXAMINATION: Chest Pain; Chest two views; ; HISTORY: Chest pain; ; Comparison: 05/01/2015; ; The lungs are clear. The heart is normal in size. The pulmonary vasculature is; normal in appearance. 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: ; : 1985 Requested By: ELENA Hudson PA-C; Order Number: [id number] Reading MD: Marbella Valente; Measurements; Intervals [place]; Rate: 91 P: 36; MT: 133 QRS: 53; QRSD: 90 T: 22; QT: 364; QTc: 448; Interpretive Statements; SINUS RHYTHM WITH SINUS ARRHYTHMIA; NSTTW ABNORMALITY; SIMILAR 05/01/15; Electronically Signed On 12-06-2016 7:22:12 EST by Marbella Valente; Radiology Order: US Abd Limited Test: US Abd Limited REASON FOR EXAMINATION: Biliary Colic; Limited abdominal ultrasound with attention to the right upper quadrant,; 12/05/2016; ; Indication: Biliary colic; ; Comparison: CT of the pelvis 05/12/2015; ; Findings: Gallbladder measures 7 by 2.7 by 2.5 cm, without cholelithiasis or; pericholecystic fluid. The gallbladder wall is 3 mm transverse dimension upper; normal range. There is a negative sonographic Gao's sign.; ; Common bile duct is 3.4 mm transverse dimension, within normal limits.; ; Hepatic parenchyma is homogeneous in echotexture without focal lesions.; ; The pancreas is unremarkable in appearance.; ; Right kidney measures 11.8 x 4.9 by 6 cm, without hydronephrosis. Renal cortical; echogenicity is within normal limits.; ; Impression:; ; No evidence of cholelithiasis or biliary dilatation; ; Unremarkable liver and pancreas; ; Right kidney without hydronephrosis; ; ; Signed by; Kyleigh Hussein MD 12/05/2016 11:10 A; Outcome: 11:04 Ultrasound Study completed. kr3 11:39 Discharge ordered by Provider. dt4 11:46 Discharge Assessment: Patient awake, alert and oriented x 3. No cognitive and/or dsf functional deficits noted. Patient verbalized understanding of disposition instructions. patient administered narcotics - yes. Pt provided with safe discharge. 11:50 The following High Risk Discharge criteria are identified: None. Discharged to home dsf ambulatory. Condition: stable. Discharge instructions given to patient, Instructed on discharge instructions, follow up and referral plans. medication usage, no driving heavy equipment, Demonstrated understanding of instructions, medications, Pt was receptive of discharge instructions/ teaching. Prescriptions given X 1. Property sent home with patient. 11:50 Patient left the ED. dsf Signatures: Dispatcher [employer] EDMS Emily Roy, RN RN Nidia Cary, HOGSHEAD PACKER HOGSHEAD PACKER jam1 Aleida Hobson, Reg Reg gb Nay Castillo, Reg Reg lg Jennifer FrenchRN RN kr3 Uyen Mensah Beth 4 She Delaney RN RN dsf Jaja Tucker Margaret, RN RN mk4 Elena Butterfield, PA-C PA-C dt4 Ulices Velez,RT RT cs15 Chart Complete MTDD
--- NOTE | 2016-12-07 12:51 | EDDOCDS ---
Physician Documentation [facility] Name: Yoselyn Qiu Age: 31 yrs Sex: Female : 1985 Arrival Date: 12/05/2016 Time: 09:04 Bed I6 / 28 Private MD: NIRMALA SHIPMAN Disposition: 12/05/16 11:39 Discharged to Home/Self Care. Impression: Upper abdominal pain, unspecified, Nausea with vomiting, unspecified, Wheezing. - Condition is Stable. - Discharge Instructions: Abdominal Pain, Adult, Nausea and Vomiting. - Prescriptions for Percocet 5- 325 mg Oral Tablet - take 1 tablet by ORAL route every 6 hours As needed MDD: 4 tabs; 15 tablet. - Medication Reconciliation, Local Pharmacy Hours form. - Follow up: Emergency Department; When: As needed; Reason: Worsening of conditions. Follow up: Your own Physician; When: AT YOUR SCHEDULED APPOINTMENT ON 01/15/17; Reason: Wound/Symptom Recheck, Recheck today's complaints, Continuance of care. - Problem is new. - Symptoms have improved. Historical: - Allergies: Amoxicillin; IV Dye; - Home Meds: 1. Prilosec 20 mg Oral cpDR 2 caps 2 times per day - PMHx: Hypothyroidism; Von Willebrand Disease; - PSHx: D & C; Colonoscopy; - Social history: Smoking status: Patient uses tobacco products, current every day smoker. No barriers to communication noted, The patient speaks fluent Faroese, Speaks appropriately for age. - Family history: Not pertinent. - : The pt / caregiver states he / she is not on anticoagulants. Home medication list is obtained from the patient. - Exposure Risk Screening:: None identified. 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 2 in. (157.48 cm); Pain 7/10; 11:04 Pain 5/10; kr3 11:43 BP 149 / 90; Pulse 84; Resp 20; Temp 98.2; Pulse Ox 99% ; Pain 7/10; jam1 09:06 Body Mass Index 23.78 (58.97 kg, 157.48 cm) cmb MDM: 09:40 Financial registration complete. lg 09:53 NS 0.9% 1000 ml IV at bolus once ordered. dt4 09:53 Ondansetron 4 mg IVP once ordered. dt4 09:53 ketorolac 30 mg IVP once ordered. dt4 09:53 IV Saline Lock ordered. dt4 09:53 Undress patient appropriately for examination ordered. dt4 09:53 Albuterol 2.5 mg Nebulizer once ordered. dt4 09:53 UCG by Nursing ordered. dt4 09:54 Amylase Ordered. EDMS 09:54 Basic Metabolic Profile Ordered. EDMS 09:54 CBC with Diff Ordered. EDMS 09:54 Lipase Ordered. EDMS 09:54 Liver Profile Ordered. EDMS 09:54 Troponin Ordered. EDMS 09:54 Cardiac Injury Profile Ordered. EDMS 09:54 TSH with Free T4 Ordered. EDMS 09:54 NOTHING BY MOUTH+DIET ordered. EDMS 09:54 Chest, 2 View (pa\E\lat) Ordered. EDMS 09:54 ECG WITH READING ER PHYS+CARDIAG ordered. EDMS 09:55 US Abd Limited Ordered. EDMS 10:02 ED course: PT C/O MULTIPLE SYMPTOMS TODAY INCLUDING, NOT FEELING WELL OVER THE PAST 2 dt4 YEARS, CHEST PAIN, ABDOMINAL PAIN, N/V. PT STATES SHE STOPPED TAKING HER THYROID MEDICATION 2 YEARS AGO AND CURRENTLY DOES NOT HAVE A PCP. STATES ESTABLISHING WITH DR. SHIPMAN ON 01/15/17. . 11:05 Basic Metabolic Profile Reviewed. dt4 11:05 CBC with Diff Reviewed. dt4 11:05 Liver Profile Reviewed. dt4 11:05 Amylase Reviewed. dt4 11:05 Lipase Reviewed. dt4 11:05 Troponin Reviewed. dt4 11:05 Cardiac Injury Profile Reviewed. dt4 11:05 TSH with Free T4 Reviewed. dt4 11:28 [facility] Payment Agreement was scanned into [employer] and attached to record. lg 11:37 oxyCODONE-acetaminophen 5 mg-325 mg 1 tabs PO once ordered. dt4 13:39 T-Sheet-- Draft Copy was scanned into [employer] and attached to record. gb 13:39 ECG/EKG was scanned into [employer] and attached to record. gb 13:40 Radiology Report was scanned into [employer] and attached to record. gb Point of Care Testing: Urine : 10:17 hCG Reading: Negative; jam1 Ranges: Administered Medications: 10:00 Drug: Albuterol 2.5 mg [albuterol sulfate 2.5 mg/0.5 mL solution for nebulization (0.5 cs15 mL)] Route: Nebulizer; 10:20 Drug: Ondansetron 4 mg [ondansetron HCl 2 mg/mL intravenous solution (2 mL)] Route: kr3 IVP; Site: right antecubital; 11:04 Follow up: Response: Nausea is decreased kr3 10:22 Drug: ketorolac 30 mg [ketorolac 30 mg/mL (1 mL) injection solution (1 mL)] Route: IVP; kr3 Site: right antecubital; 11:04 Follow up: Pain 5/10 Adult; Response: Pain is decreased kr3 10:23 Drug: NS 0.9% 1000 ml [sodium chloride 0.9 % intravenous solution] Route: IV; Rate: kr3 bolus; Site: right antecubital; 11:47 Follow up: IV Status: Completed infusion; IV Intake: 1000ml dsf 11:45 Drug: oxyCODONE-acetaminophen 1 tabs [oxycodone-acetaminophen 5 mg-325 mg tablet (1 dsf tabs)] Route: PO; 11:50 Follow up: Response: Confirmed pt not driving.; Pt left department before re-evaluation dsf is appropriate Signatures: Dispatcher [employer] EDEmily Lucas RN RN [facility] Aleida Hobson, Reg Reg gb Nay Castillo, Reg Reg lg She Delaney RN RN dsf Elena Butterfield PA-C PA-C dt4 Jennifer French RN kr3 Ulices Velez RT cs15 The chart was reviewed and I authenticate all verbal orders and agree with the evaluation and treatment provided.Attachments: 11:28 [facility] Payment Agreement lg 13:39 T-Sheet-- Draft Copy gb 13:39 ECG/EKG gb Chart Complete MTDD
== END 2016-12-05 11:50 | disposition home or self-care (01) ==
LOC: M ED 09:04
DX: R06.2 Wheezing (principal); R10.10 Upper abdominal pain, unspecified; R11.2 Nausea with vomiting, unspecified; E03.9 Hypothyroidism, unspecified; D68.0 Von Willebrand disease; Z79.899 Other long term (current) drug therapy; Z88.0 Allergy status to penicillin; Z88.1 Allergy status to other antibiotic agents; Z91.041 Radiographic dye allergy status; F17.210 Nicotine dependence, cigarettes, uncomplicated
CPT/HCPCS: 71020; 76705; 80048; 80076; 81025; 82150; 82550; 82553; 83690; 84439; 84443; 85025; 93005; 94640; 96361; 96374; 96375; 99284; J1885; J2405

== ENCOUNTER 2016-12-08 19:23 | Emergency (ER) | payer BC ==
--- NOTE | 2016-12-08 22:13 | EDDOCDS ---
Nurse's Notes [facility] Name: Yoselyn Qiu Age: 31 yrs Sex: Female : 1985 Arrival Date: 12/08/2016 Time: 19:23 Bed TR8 Private MD: NO PRIMARY PHYSICIAN, . Diagnosis: Contusion of right foot-BALL OF FOOT Presentation: 12/08 19:27 Presenting complaint: Patient states: Fell off 3rd or 4th rung of a ladder injuring kmg1 bottom of the ball of right foot. Painful to walk and put pressure to foot. Adult Sepsis Screening: The patient does not have new or worsening altered mentation. Patient's respiratory rate is less than 22. Systolic blood pressure is greater than 100. Patient has a qSOFA score of 0- Negative Sepsis Screen. Suicide/Homicide risk assessment- the patient denies having any suicidal and/or homicidal ideations and does not present with any other emotional, behavioral or mental health complaints. Status: Patient is not a well service floorperson or dependent. Transition of care: patient was not received from another setting of care. 19:27 Acuity: AURELIA Level 4 km 19:27 Method Of Arrival: Walkin/Carried/Asstd kmg1 Triage Assessment: 19:30 General: Appears in no apparent distress, comfortable, Behavior is appropriate for age, kmg1 cooperative, pleasant. Pain: Location: ball of right foot Pain currently is 7 out of 10 on a pain scale. Quality of pain is described as aching, throbbing, Aggravated by weight bearing. HIV screening NA for this visit Offered previously. Musculoskeletal: Reports pain in ball of right foot. 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 Prilosec 20 mg Oral cpDR 2 caps 2 times per day (Last dose: 12/08/2016) - PMHx: Hypothyroidism; Von Willebrand Disease; Chron's Disease; - PSHx: D & C; Colonoscopy; - Social history: Smoking status: Patient uses tobacco products, light tobacco smoker. No barriers to communication noted, The patient speaks fluent Luxembourger, Speaks appropriately for age. - Family history: Not pertinent. - : The pt / caregiver states he / she is not on anticoagulants. Home medication list is obtained from the patient. - Exposure Risk Screening:: None identified. Screenin:08 Screening information is obtained from the patient. Fall risk: No risks identified. cz Assistance ADL's: requires no assistance with activities of daily living. Abuse/DV Screen: The patient / caregiver reports he/she is: not in a situation that causes fear, pain or injury. Nutritional screening: No deficits noted. home support is adequate. Assessment: 22:08 Reassessment: no change in foot discomfort from initial triage. cz Vital Signs: 19:25 BP 126 / 73; Pulse 86; Resp 18 S; Pulse Ox 98% on R/A; Weight 58.97 kg (R); Height 5 dd6 ft. 3 in. (160.02 cm) (R); 20:37 Temp 97.2(O); ar3 19:25 Body Mass Index 23.03 (58.97 kg, 160.02 cm) dd6 Vitals: 19:25 Log In Time: December 08, 2016 at 19:23. dd6 ED Course: 19:24 Patient visited by Felix Perez PCA. dd6 19:24 Patient moved to Waiting dd6 19:25 NO PRIMARY PHYSICIAN, . is Private Physician. dd6 19:27 Patient moved to Pre RCE dd6 19:29 Triage Initiated kmg1 20:10 Patient moved to Triage 1 cz 20:19 Chapincito Caldera RPA-C is PHCP. ck7 20:19 Perry Costa DO is Attending Physician. ck7 20:19 Patient visited by Chapincito Caldera RPA-C. ck7 20:36 Patient moved to TR1 rs3 20:38 Patient visited by Shivani Portillo PCA. ar3 20:55 Patient moved to Radiology arash 21:04 Patient moved to TR1 arash 21:18 [facility] Payment Agreement was scanned into [employer] and attached to record. zo 21:23 Patient visited by Chapincito Caldera RPA-C. ck7 21:40 [facility] is Referral Physician. ck7 21:45 Patient moved to PD2 / 27 rs3 21:45 Patient moved to I7 / 29 cz 21:46 Patient moved to PD2 / 27 ar3 21:46 Patient moved to I7 / 29 rs3 22:05 Patient moved to TR8 ms18 22:08 The patient / caregiver is instructed regarding the plan of care and ED course. cz 22:08 No IV's were initiated during this patient's visit. Crutch training done. Ortho shoe cz applied to right foot. Order Results: There are currently no results for this order. Outcome: 21:40 Discharge ordered by Provider. ck7 22:08 Discharge Assessment: Patient awake, alert and oriented x 3. No cognitive and/or cz functional deficits noted. Patient verbalized understanding of disposition instructions. patient administered narcotics - no. The following High Risk Discharge criteria are identified: None. Discharged to home ambulatory, with crutches, pt walked out not using crutches that were prescribed. Condition: stable. Discharge instructions given to patient, Instructed on discharge instructions, follow up and referral plans. Demonstrated understanding of instructions, Pt was receptive of discharge instructions/ teaching. No special radiology studies were completed. Property :Personal belongings accompany Pt. 22:12 Patient left the ED. cz Signatures: Vicky Restrepo RN RN kmg1 Shaka Gould RN RN cz Chandler Jenkins Zoeann zo Desormeau, Daniell, SEC ACCOUNTANT SEC ACCOUNTANT dd6 Lidia CrouchRN RN rs3 Shivani Portillo, SEC ACCOUNTANT SEC ACCOUNTANT ar3 Chapincito Caldera, RPA-C RPA-Cck7 Cathy Brown,DOROTA RN ms18 MTDD
--- NOTE | 2016-12-08 22:13 | EDDOCDS ---
Physician Documentation [facility] Name: Yoselyn Qiu Age: 31 yrs Sex: Female : 1985 Arrival Date: 12/08/2016 Time: 19:23 Bed TR8 Private MD: NO PRIMARY PHYSICIAN, . Disposition: 12/08/16 21:40 Discharged to Home/Self Care. Impression: Contusion of right foot - BALL OF FOOT. - Condition is Stable. - Discharge Instructions: Foot Contusion. - Medication Reconciliation, Local Pharmacy Hours form. - Follow up: [facility]; When: 2 - 3 days; Reason: Recheck today's complaints, Continuance of care. - Problem is new. - Symptoms have improved. - Notes: USE POST OP SHOE, CRUTCHES,TYLENOL AND ICE TO HELP WITH PAIN. FOLLOW UP WITH THE GRADUATE MEDICAL PROGRAM IN 2-3 DAYS. DO NOT CONTINUE TO USE ALIEVE AT HOME Historical: - Allergies: Amoxicillin; IV Dye; - Home Meds: 1. Prilosec 20 mg Oral cpDR 2 caps 2 times per day (Last dose: 12/08/2016) - PMHx: Hypothyroidism; Von Willebrand Disease; Chron's Disease; - PSHx: D & C; Colonoscopy; - Social history: Smoking status: Patient uses tobacco products, light tobacco smoker. No barriers to communication noted, The patient speaks fluent Pashto, Speaks appropriately for age. - Family history: Not pertinent. - : The pt / caregiver states he / she is not on anticoagulants. Home medication list is obtained from the patient. - Exposure Risk Screening:: None identified. 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 3 in. (160.02 cm) (R); 20:37 Temp 97.2(O); ar3 19:25 Body Mass Index 23.03 (58.97 kg, 160.02 cm) dd6 Procedures: 21:40 Fracture care/splinting: Splint applied to right foot using cast shoe. applied by ck7 nurse. Examined by me, post splint application: neurovascular intact, 2+ distal pulses palpable, brisk capillary refill noted, Patient tolerated well. MDM: 20:36 Foot, Complete Ordered. EDMS 20:37 Financial registration complete. zo 21:18 [facility] Payment Agreement was scanned into [employer] and attached to record. zo 21:24 Splint Affected Extremity ordered. ck7 21:24 Crutches ordered. ck7 21:56 ED course: PT NOTED TO BE WALKING ON POST OP SHOE WITHOUT CRUTCHES AFTER SIGNING ck7 DISCHARGE PAPERS, PT IS NONCOMPLIANT WITH MEDICAL PLAN. Signatures: Dispatcher [employer] EDFL Vicky Restrepo RN RN kmg1 Shaka Gould RN RN cz Olin, Zoeann zo Kwaczala, Christopher, RPA-C RPA-Cck7 The chart was reviewed and I authenticate all verbal orders and agree with the evaluation and treatment provided.Attachments: 21:18 [facility] Payment Agreement zo MTDD
--- NOTE | 2016-12-09 03:06 | REP ---
Clinical: Trauma. Deformity/swelling . Technique: AP, lateral, bilateral oblique views right foot . Findings: The osseous structures and joint spaces are intact and normal. There is no evidence for acute fracture or dislocation. Surrounding soft tissues are unremarkable. No subcutaneous emphysema or radiodense foreign body. Impression: No acute fracture or dislocation. Signed by Arturo Montes MD 12/09/2016 02:56 A
--- NOTE | 2016-12-10 23:13 | EDDOCDS ---
Physician Documentation [facility] Name: Yoselyn Qiu Age: 31 yrs Sex: Female : 1985 Arrival Date: 12/08/2016 Time: 19:23 Bed TR8 Private MD: NO PRIMARY PHYSICIAN, . Disposition: 12/08/16 21:40 Discharged to Home/Self Care. Impression: Contusion of right foot - BALL OF FOOT. - Condition is Stable. - Discharge Instructions: Foot Contusion. - Medication Reconciliation, Local Pharmacy Hours form. - Follow up: [facility]; When: 2 - 3 days; Reason: Recheck today's complaints, Continuance of care. - Problem is new. - Symptoms have improved. - Notes: USE POST OP SHOE, CRUTCHES,TYLENOL AND ICE TO HELP WITH PAIN. FOLLOW UP WITH THE GRADUATE MEDICAL PROGRAM IN 2-3 DAYS. DO NOT CONTINUE TO USE ALIEVE AT HOME Historical: - Allergies: Amoxicillin; IV Dye; - Home Meds: 1. Prilosec 20 mg Oral cpDR 2 caps 2 times per day (Last dose: 12/08/2016) - PMHx: Hypothyroidism; Von Willebrand Disease; Chron's Disease; - PSHx: D & C; Colonoscopy; - Social history: Smoking status: Patient uses tobacco products, light tobacco smoker. No barriers to communication noted, The patient speaks fluent Upper Sorbian, Speaks appropriately for age. - Family history: Not pertinent. - : The pt / caregiver states he / she is not on anticoagulants. Home medication list is obtained from the patient. - Exposure Risk Screening:: None identified. 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 3 in. (160.02 cm) (R); 20:37 Temp 97.2(O); ar3 19:25 Body Mass Index 23.03 (58.97 kg, 160.02 cm) dd6 Procedures: 21:40 Fracture care/splinting: Splint applied to right foot using cast shoe. applied by ck7 nurse. Examined by me, post splint application: neurovascular intact, 2+ distal pulses palpable, brisk capillary refill noted, Patient tolerated well. MDM: 20:36 Foot, Complete Ordered. EDMS 20:37 Financial registration complete. zo 21:18 [facility] Payment Agreement was scanned into [employer] and attached to record. zo 21:24 Splint Affected Extremity ordered. ck7 21:24 Crutches ordered. ck7 21:56 ED course: PT NOTED TO BE WALKING ON POST OP SHOE WITHOUT CRUTCHES AFTER SIGNING ck7 DISCHARGE PAPERS, PT IS NONCOMPLIANT WITH MEDICAL PLAN. 12/09 10:58 T-Sheet-- Draft Copy was scanned into [employer] and attached to record. gb Signatures: Dispatcher [employer] EDMT Vicky Restrepo RN RN kmg1 Shaka Gould RN RN cz Barnhardt, Gloria, Kendall Reg gb Rome Solano Christopher, RPA-C RPA-Cck7 The chart was reviewed and I authenticate all verbal orders and agree with the evaluation and treatment provided.Attachments: 12/08 21:18 [facility] Payment Agreement zo 12/09 10:58 T-Sheet-- Draft Copy gb Chart Complete MTDD
--- NOTE | 2016-12-10 23:13 | EDDOCDS ---
Physician Documentation [facility] Name: Yoselyn Qiu Age: 31 yrs Sex: Female : 1985 Arrival Date: 12/08/2016 Time: 19:23 Bed TR8 Private MD: NO PRIMARY PHYSICIAN, . Disposition: 12/08/16 21:40 Discharged to Home/Self Care. Impression: Contusion of right foot - BALL OF FOOT. - Condition is Stable. - Discharge Instructions: Foot Contusion. - Medication Reconciliation, Local Pharmacy Hours form. - Follow up: [facility]; When: 2 - 3 days; Reason: Recheck today's complaints, Continuance of care. - Problem is new. - Symptoms have improved. - Notes: USE POST OP SHOE, CRUTCHES,TYLENOL AND ICE TO HELP WITH PAIN. FOLLOW UP WITH THE GRADUATE MEDICAL PROGRAM IN 2-3 DAYS. DO NOT CONTINUE TO USE ALIEVE AT HOME Historical: - Allergies: Amoxicillin; IV Dye; - Home Meds: 1. Prilosec 20 mg Oral cpDR 2 caps 2 times per day (Last dose: 12/08/2016) - PMHx: Hypothyroidism; Von Willebrand Disease; Chron's Disease; - PSHx: D & C; Colonoscopy; - Social history: Smoking status: Patient uses tobacco products, light tobacco smoker. No barriers to communication noted, The patient speaks fluent Albanian, Speaks appropriately for age. - Family history: Not pertinent. - : The pt / caregiver states he / she is not on anticoagulants. Home medication list is obtained from the patient. - Exposure Risk Screening:: None identified. 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 3 in. (160.02 cm) (R); 20:37 Temp 97.2(O); ar3 19:25 Body Mass Index 23.03 (58.97 kg, 160.02 cm) dd6 Procedures: 21:40 Fracture care/splinting: Splint applied to right foot using cast shoe. applied by ck7 nurse. Examined by me, post splint application: neurovascular intact, 2+ distal pulses palpable, brisk capillary refill noted, Patient tolerated well. MDM: 20:36 Foot, Complete Ordered. EDMS 20:37 Financial registration complete. zo 21:18 [facility] Payment Agreement was scanned into [employer] and attached to record. zo 21:24 Splint Affected Extremity ordered. ck7 21:24 Crutches ordered. ck7 21:56 ED course: PT NOTED TO BE WALKING ON POST OP SHOE WITHOUT CRUTCHES AFTER SIGNING ck7 DISCHARGE PAPERS, PT IS NONCOMPLIANT WITH MEDICAL PLAN. 12/09 10:58 T-Sheet-- Draft Copy was scanned into [employer] and attached to record. gb Signatures: Dispatcher [employer] EDOR Vicky Restrepo RN RN kmg1 Shaka Gould RN RN cz Barnhardt, Gloria, Kendall Reg gb Rome Solano Christopher, RPA-C RPA-Cck7 The chart was reviewed and I authenticate all verbal orders and agree with the evaluation and treatment provided.Attachments: 12/08 21:18 [facility] Payment Agreement zo 12/09 10:58 T-Sheet-- Draft Copy gb Chart Complete MTDD
--- NOTE | 2016-12-10 23:13 | EDDOCDS ---
Nurse's Notes [facility] Name: Yoselyn Qiu Age: 31 yrs Sex: Female : 1985 Arrival Date: 12/08/2016 Time: 19:23 Bed TR8 Private MD: NO PRIMARY PHYSICIAN, . Diagnosis: Contusion of right foot-BALL OF FOOT Presentation: 12/08 19:27 Presenting complaint: Patient states: Fell off 3rd or 4th rung of a ladder injuring kmg1 bottom of the ball of right foot. Painful to walk and put pressure to foot. Adult Sepsis Screening: The patient does not have new or worsening altered mentation. Patient's respiratory rate is less than 22. Systolic blood pressure is greater than 100. Patient has a qSOFA score of 0- Negative Sepsis Screen. Suicide/Homicide risk assessment- the patient denies having any suicidal and/or homicidal ideations and does not present with any other emotional, behavioral or mental health complaints. Status: Patient is not a technical services assistant or dependent. Transition of care: patient was not received from another setting of care. 19:27 Acuity: AURELIA Level 4 km 19:27 Method Of Arrival: Walkin/Carried/Asstd kmg1 Triage Assessment: 19:30 General: Appears in no apparent distress, comfortable, Behavior is appropriate for age, kmg1 cooperative, pleasant. Pain: Location: ball of right foot Pain currently is 7 out of 10 on a pain scale. Quality of pain is described as aching, throbbing, Aggravated by weight bearing. HIV screening NA for this visit Offered previously. Musculoskeletal: Reports pain in ball of right foot. 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 Prilosec 20 mg Oral cpDR 2 caps 2 times per day (Last dose: 12/08/2016) - PMHx: Hypothyroidism; Von Willebrand Disease; Chron's Disease; - PSHx: D & C; Colonoscopy; - Social history: Smoking status: Patient uses tobacco products, light tobacco smoker. No barriers to communication noted, The patient speaks fluent Anguillan, Speaks appropriately for age. - Family history: Not pertinent. - : The pt / caregiver states he / she is not on anticoagulants. Home medication list is obtained from the patient. - Exposure Risk Screening:: None identified. Screenin:08 Screening information is obtained from the patient. Fall risk: No risks identified. cz Assistance ADL's: requires no assistance with activities of daily living. Abuse/DV Screen: The patient / caregiver reports he/she is: not in a situation that causes fear, pain or injury. Nutritional screening: No deficits noted. home support is adequate. Assessment: 22:08 Reassessment: no change in foot discomfort from initial triage. cz Vital Signs: 19:25 BP 126 / 73; Pulse 86; Resp 18 S; Pulse Ox 98% on R/A; Weight 58.97 kg (R); Height 5 dd6 ft. 3 in. (160.02 cm) (R); 20:37 Temp 97.2(O); ar3 19:25 Body Mass Index 23.03 (58.97 kg, 160.02 cm) dd6 Vitals: 19:25 Log In Time: December 08, 2016 at 19:23. dd6 ED Course: 19:24 Patient visited by Felix Perez PCA. dd6 19:24 Patient moved to Waiting dd6 19:25 NO PRIMARY PHYSICIAN, . is Private Physician. dd6 19:27 Patient moved to Pre RCE dd6 19:29 Triage Initiated kmg1 20:10 Patient moved to Triage 1 cz 20:19 Chapincito Caldera RPA-C is PHCP. ck7 20:19 Perry Costa DO is Attending Physician. ck7 20:19 Patient visited by Chapincito Caldera RPA-C. ck7 20:36 Patient moved to TR1 rs3 20:38 Patient visited by Shivani Portillo PCA. ar3 20:55 Patient moved to Radiology arash 21:04 Patient moved to TR1 arash 21:18 [facility] Payment Agreement was scanned into [employer] and attached to record. zo 21:23 Patient visited by Chapincito Caldera RPA-C. ck7 21:40 [facility] is Referral Physician. ck7 21:45 Patient moved to PD2 / 27 rs3 21:45 Patient moved to I7 / 29 cz 21:46 Patient moved to PD2 / 27 ar3 21:46 Patient moved to I7 / 29 rs3 22:05 Patient moved to TR8 ms18 22:08 The patient / caregiver is instructed regarding the plan of care and ED course. cz 22:08 No IV's were initiated during this patient's visit. Crutch training done. Ortho shoe cz applied to right foot. 12/09 03:19 Foot, Complete Returned. EDMS 10:58 T-Sheet-- Draft Copy was scanned into [employer] and attached to record. gb Order Results: Radiology Order: Foot, Complete Test: Foot, Complete REASON FOR EXAMINATION: Deformity/Swelling; Clinical: Trauma. Deformity/swelling .; ; Technique: AP, lateral, bilateral oblique views right foot .; ; Findings: The osseous structures and joint spaces are intact and normal. There; is no evidence for acute fracture or dislocation. Surrounding soft tissues are; unremarkable. No subcutaneous emphysema or radiodense foreign body.; ; Impression:; No acute fracture or dislocation.; ; ; Signed by; Arturo Montes MD 12/09/2016 02:56 A; Outcome: 12/08 21:40 Discharge ordered by Provider. ck7 22:08 Discharge Assessment: Patient awake, alert and oriented x 3. No cognitive and/or cz functional deficits noted. Patient verbalized understanding of disposition instructions. patient administered narcotics - no. The following High Risk Discharge criteria are identified: None. Discharged to home ambulatory, with crutches, pt walked out not using crutches that were prescribed. Condition: stable. Discharge instructions given to patient, Instructed on discharge instructions, follow up and referral plans. Demonstrated understanding of instructions, Pt was receptive of discharge instructions/ teaching. No special radiology studies were completed. Property :Personal belongings accompany Pt. 22:12 Patient left the ED. cz Signatures: Dispatcher [facility] EDNE Vicky Restrepo, RN RN kmg1 Shaka Gould RN RN cz Chandler Jenkins Gloria, Reg Reg gb Rome Solano Daniell, ASBESTOS WIRE FINISHER ASBESTOS WIRE FINISHER dd6 Lidia Crouch,RN RN rs3 Shivani Portillo, ASBESTOS WIRE FINISHER ASBESTOS WIRE FINISHER ar3 Chapincito Caldera, RPA-C RPA-Cck7 Cathy Brown RN RN ms18 Chart Complete MTDD
== END 2016-12-08 22:12 | disposition home or self-care (01) ==
LOC: M ED 19:23
DX: S90.31XA Contusion of right foot, initial encounter (principal); W11.XXXA Fall on and from ladder, initial encounter; Y92.019 Unspecified place in single-family (private) house as the place of occurrence of the external cause; Y93.89 Activity, other specified; Y99.8 Other external cause status; E03.9 Hypothyroidism, unspecified; D68.0 Von Willebrand disease; K50.90 Crohn's disease, unspecified, without complications; F17.210 Nicotine dependence, cigarettes, uncomplicated; Z88.0 Allergy status to penicillin; Z91.041 Radiographic dye allergy status

== ENCOUNTER 2017-01-03 22:55 | Emergency (ER) | payer BC ==
[2017-01-04] MEDS ORDERED: LIDOCAINE VISCOUS 2% SOLN 15ML UDC As Ordered ONE (00:02)
[2017-01-04] MEDS ORDERED: CLINDAMYCIN 150 MG CAP As Ordered ONE (00:06)
--- NOTE | 2017-01-04 00:14 | EDDOCDS ---
Physician Documentation [facility] [place] Name: Yoselyn Qiu Age: 31 yrs Sex: Female : 1985 Arrival Date: 01/03/2017 Time: 22:55 Bed Triage 3 Private MD: Jeffrey Beltran G Disposition: 01/04/17 00:06 Discharged to Home/Self Care. Impression: Pain in throat - Acute Uvulitis. - Condition is Stable. - Discharge Instructions: Salt Water Gargle, Sore Throat. - Prescriptions for Lidocaine Viscous - take 1 Teaspoon by BUCCAL route every 6 hours; 200 Teaspoon. Clindamycin HCl 300 mg Oral Capsule - take 1 capsule by ORAL route every 6 hours; 40 capsule. - Medication Reconciliation, Local Pharmacy Hours form. - Follow up: Jeffrey Beltran; When: Call to arrange an appointment; Reason: Recheck today's complaints, Continuance of care. - Problem is new. - Symptoms are unchanged. Historical: - Allergies: Amoxicillin; IV Dye; - Home Meds: 1. Prilosec 20 mg Oral cpDR 2 caps 2 times per day - PMHx: Chron's Disease; Hypothyroidism; Von Willebrand Disease; - PSHx: D & C; Colonoscopy; - Social history: Smoking status: Patient uses tobacco products, heavy tobacco smoker. No barriers to communication noted, The patient speaks fluent Swazi, Speaks appropriately for age. - Family history: Not pertinent. - : The pt / caregiver states he / she is not on anticoagulants. Home medication list is obtained from the patient. - Exposure Risk Screening:: None identified. Vital Signs: 01/03 22:57 BP 145 / 88; Pulse 70; Resp 16; Pulse Ox 100% on R/A; Weight 63.5 kg / 139.99 lbs; sew Height 5 ft. 2 in. (157.48 cm); Pain 10/10; 22:57 Body Mass Index 25.61 (63.50 kg, 157.48 cm) sew MDM: 23:35 Strep Screen, Nursing ordered. mo1 23:46 GATS (NEGATIVE STREP SCREEN) Ordered. EDMS 01/04 00:00 Lidocaine Viscous Liquid 2 % 15 ml Mucous Membrane in affected area once ordered. mo1 00:05 Clindamycin 300 mg PO once ordered. mo1 00:11 Financial registration complete. pm4 00:11 [facility] Payment Agreement was scanned into [employer] and attached to record. pm4 Administered Medications: 00:04 Drug: Lidocaine Viscous 15 ml [Lidocaine Viscous 2 % mucosal solution (15 mL)] Route: mcp Mucous Membrane; Site: affected area; 00:09 Drug: Clindamycin 300 mg [clindamycin 150 mg capsule (2 caps)] Route: PO; mcp Signatures: Dispatcher [employer] Cris Douglas RN RN mcp O'Hagan, Michael, PA PA mo1 Abbi Delgadillo RN RN nn1 Bbeo Arreola, Reg Reg pm4 The chart was reviewed and I authenticate all verbal orders and agree with the evaluation and treatment provided.Attachments: 00:11 [facility] Payment Agreement pm4 MTDD
--- NOTE | 2017-01-04 00:14 | EDDOCDS ---
Nurse's Notes [facility] Name: Yoselyn Qiu Age: 31 yrs Sex: Female : 1985 Arrival Date: 01/03/2017 Time: 22:55 Bed Triage 3 Private MD: Jeffrey Beltran G Diagnosis: Pain in throat-Acute Uvulitis Presentation: 01/03 23:01 Presenting complaint: Patient states: throat is bleeding. States she began feeling like nn1 there was something stuck in it at 1400. Reports headache. Bleeding began an hour ago. Patient reports she has a blood disease. Risk factors: Stridor is not present. Drooling is not present. Shortness of breath is not present. Cellulitis is not present. Adult Sepsis Screening: The patient does not have new or worsening altered mentation. Patient's respiratory rate is less than 22. Systolic blood pressure is greater than 100. Patient has a qSOFA score of 0- Negative Sepsis Screen. Suicide/Homicide risk assessment- the patient denies having any suicidal and/or homicidal ideations and does not present with any other emotional, behavioral or mental health complaints. 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 Transition of care: patient was not received from another setting of care. 23:01 Acuity: AURLEIA Level 4 nn1 23:01 Method Of Arrival: Walkin/Carried/Asstd nn1 Triage Assessment: 23:04 General: Appears distressed, Behavior is crying. Pain: Location: throat Pain currently nn1 is 9 out of 10 on a pain scale. HIV screening NA for this visit Offered previously. Neurological: No deficits noted. EENT: Throat Reports. Derm: Skin is pink, warm & dry. 23:06 EENT: Throat is pink Swollen uvula, no bleeding noted. . nn1 Historical: - Allergies: Amoxicillin; IV Dye; - Home Meds: 1. Prilosec 20 mg Oral cpDR 2 caps 2 times per day - PMHx: Chron's Disease; Hypothyroidism; Von Willebrand Disease; - PSHx: D & C; Colonoscopy; - Social history: Smoking status: Patient uses tobacco products, heavy tobacco smoker. No barriers to communication noted, The patient speaks fluent Croatian, Speaks appropriately for age. - Family history: Not pertinent. - : The pt / caregiver states he / she is not on anticoagulants. Home medication list is obtained from the patient. - Exposure Risk Screening:: None identified. Screenin/11 00:12 Screening information is obtained from the patient. Fall risk: No risks identified. mcp Assistance ADL's: requires no assistance with activities of daily living. Abuse/DV Screen: The patient / caregiver reports he/she is: not in a situation that causes fear, pain or injury. Nutritional screening: No deficits noted. Advance Directives: Currently, there is no health care proxy. There is no active DNR order. home support is adequate. Assessment: 00:11 General: Appears uncomfortable, Behavior is cooperative. Pain: Location: throat Pain mcp currently is 7 out of 10 on a pain scale. Neurological: No deficits noted. EENT: Throat uvula reddened and swollen. Respiratory: Airway is patent Respiratory effort is even, unlabored. Derm: Skin is pink, warm & dry. Vital Signs: 01/03 22:57 BP 145 / 88; Pulse 70; Resp 16; Pulse Ox 100% on R/A; Weight 63.5 kg; Height 5 ft. 2 sew in. (157.48 cm); Pain 09/02; 22:57 Body Mass Index 25.61 (63.50 kg, 157.48 cm) [facility] [place] Vitals: 22:57 Log In Time: January 03, 2017 at 22:55. [facility] [place] ED Course: 22:56 Patient visited by Marbella Gates. sew 22:56 Patient moved to Waiting sew 22:57 Jeffrey Beltran is Private Physician. sew 22:59 Patient visited by Marbella Gates. sew 22:59 Patient moved to Pre RCE sew 23:04 Triage Initiated nn1 23:31 Patient moved to Triage 3 mcp 23:34 Bk Lombardi PA is PHCP. mo1 23:34 Gee Guillory DO is Attending Physician. mo1 23:45 Strep culture sent to lab. nn1 23:48 Patient visited by Abbi Delgadillo RN. nn1 23:49 GATS (NEGATIVE STREP SCREEN) Sent. nn1 23:54 Patient visited by Bk Lombardi PA. mo1 01/04 00:06 Jeffrey Beltran is Referral Physician. mo1 00:11 [facility] Payment Agreement was scanned into [employer] and attached to record. pm4 00:12 The patient / caregiver is instructed regarding the plan of care and ED course. Patient mcp has correct armband on for positive identification. Bed in low position. Call light in reach. 00:12 No IV's were initiated during this patient's visit. No procedures done that require mcp assistance. Administered Medications: 00:04 Drug: Lidocaine Viscous 15 ml [Lidocaine Viscous 2 % mucosal solution (15 mL)] Route: mcp Mucous Membrane; Site: affected area; 00:09 Drug: Clindamycin 300 mg [clindamycin 150 mg capsule (2 caps)] Route: PO; mcp Order Results: There are currently no results for this order. Outcome: 00:06 Discharge ordered by Provider. mo1 00:12 Discharge Assessment: patient administered narcotics - no. The following High Risk mcp Discharge criteria are identified: None. Discharged to home ambulatory. Condition: stable. Discharge instructions given to patient, Instructed on discharge instructions, follow up and referral plans. medication usage, Demonstrated understanding of instructions, medications, Pt was receptive of discharge instructions/ teaching. Prescriptions given X 2. No special radiology studies were completed. Property sent home with patient. 00:13 Patient left the ED. mcp Signatures: Cris Ken, RN RN Marbella Jacobo Michael, PA PA mo1 Abbi Delgadillo,RN RN nn1 Bebo Arreola, Reg Reg pm4 MTDD
--- NOTE | 2017-01-06 01:14 | EDDOCDS ---
Nurse's Notes [facility] Name: Yoselyn Qiu Age: 31 yrs Sex: Female : 1985 Arrival Date: 01/03/2017 Time: 22:55 Bed Triage 3 Private MD: Jeffrey Beltran G Diagnosis: Pain in throat-Acute Uvulitis Presentation: 01/03 23:01 Presenting complaint: Patient states: throat is bleeding. States she began feeling like nn1 there was something stuck in it at 1400. Reports headache. Bleeding began an hour ago. Patient reports she has a blood disease. Risk factors: Stridor is not present. Drooling is not present. Shortness of breath is not present. Cellulitis is not present. Adult Sepsis Screening: The patient does not have new or worsening altered mentation. Patient's respiratory rate is less than 22. Systolic blood pressure is greater than 100. Patient has a qSOFA score of 0- Negative Sepsis Screen. Suicide/Homicide risk assessment- the patient denies having any suicidal and/or homicidal ideations and does not present with any other emotional, behavioral or mental health complaints. 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 Transition of care: patient was not received from another setting of care. 23:01 Acuity: AURELIA Level 4 nn1 23:01 Method Of Arrival: Walkin/Carried/Asstd nn1 Triage Assessment: 23:04 General: Appears distressed, Behavior is crying. Pain: Location: throat Pain currently nn1 is 9 out of 10 on a pain scale. HIV screening NA for this visit Offered previously. Neurological: No deficits noted. EENT: Throat Reports. Derm: Skin is pink, warm & dry. 23:06 EENT: Throat is pink Swollen uvula, no bleeding noted. . nn1 Historical: - Allergies: Amoxicillin; IV Dye; - Home Meds: 1. Prilosec 20 mg Oral cpDR 2 caps 2 times per day - PMHx: Chron's Disease; Hypothyroidism; Von Willebrand Disease; - PSHx: D & C; Colonoscopy; - Social history: Smoking status: Patient uses tobacco products, heavy tobacco smoker. No barriers to communication noted, The patient speaks fluent Namibian, Speaks appropriately for age. - Family history: Not pertinent. - : The pt / caregiver states he / she is not on anticoagulants. Home medication list is obtained from the patient. - Exposure Risk Screening:: None identified. Screenin/11 00:12 Screening information is obtained from the patient. Fall risk: No risks identified. mcp Assistance ADL's: requires no assistance with activities of daily living. Abuse/DV Screen: The patient / caregiver reports he/she is: not in a situation that causes fear, pain or injury. Nutritional screening: No deficits noted. Advance Directives: Currently, there is no health care proxy. There is no active DNR order. home support is adequate. Assessment: 00:11 General: Appears uncomfortable, Behavior is cooperative. Pain: Location: throat Pain mcp currently is 7 out of 10 on a pain scale. Neurological: No deficits noted. EENT: Throat uvula reddened and swollen. Respiratory: Airway is patent Respiratory effort is even, unlabored. Derm: Skin is pink, warm & dry. Vital Signs: 01/03 22:57 BP 145 / 88; Pulse 70; Resp 16; Pulse Ox 100% on R/A; Weight 63.5 kg; Height 5 ft. 2 sew in. (157.48 cm); Pain 09/02; 22:57 Body Mass Index 25.61 (63.50 kg, 157.48 cm) [facility] [place] Vitals: 22:57 Log In Time: January 03, 2017 at 22:55. [facility] [place] ED Course: 22:56 Patient visited by Marbella Gates. sew 22:56 Patient moved to Waiting sew 22:57 Jeffrey Beltran is Private Physician. sew 22:59 Patient visited by Mabrella Gates. sew 22:59 Patient moved to Pre RCE sew 23:04 Triage Initiated nn1 23:31 Patient moved to Triage 3 mcp 23:34 Bk Lombardi PA is PHCP. mo1 23:34 Gee Guillory DO is Attending Physician. mo1 23:45 Strep culture sent to lab. nn1 23:48 Patient visited by Abbi Delgadillo RN. nn1 23:49 GATS (NEGATIVE STREP SCREEN) Sent. nn1 23:54 Patient visited by Bk Lombardi PA. mo1 01/04 00:06 Jeffrey Beltran is Referral Physician. mo1 00:11 [facility] Payment Agreement was scanned into [employer] and attached to record. pm4 00:12 The patient / caregiver is instructed regarding the plan of care and ED course. Patient mcp has correct armband on for positive identification. Bed in low position. Call light in reach. 00:12 No IV's were initiated during this patient's visit. No procedures done that require mcp assistance. 10:56 T-Sheet-- Draft Copy was scanned into [employer] and attached to record. gb Administered Medications: 00:04 Drug: Lidocaine Viscous 15 ml [Lidocaine Viscous 2 % mucosal solution (15 mL)] Route: mcp Mucous Membrane; Site: affected area; 00:09 Drug: Clindamycin 300 mg [clindamycin 150 mg capsule (2 caps)] Route: PO; mcp Order Results: Lab Order: GATS (NEGATIVE STREP SCREEN); SPEC'M 01/03/17 22:43 Test: GATS CULTURE (NEG STREP SCR); Value: GATS RESULT NEGATIVE FOR STREP PYOGENES (GROUP A); Status: F Test: GATS CULTURE (NEG STREP SCR); Value: <EXTERNAL COMMENT eCWMed> FULL REPORT IN LAB NOTES (eCW and Medent).; Status: F Outcome: 00:06 Discharge ordered by Provider. mo1 00:12 Discharge Assessment: patient administered narcotics - no. The following High Risk [facility] Discharge criteria are identified: None. Discharged to home ambulatory. Condition: stable. Discharge instructions given to patient, Instructed on discharge instructions, follow up and referral plans. medication usage, Demonstrated understanding of instructions, medications, Pt was receptive of discharge instructions/ teaching. Prescriptions given X 2. No special radiology studies were completed. Property sent home with patient. 00:13 Patient left the ED. [facility] Signatures: Cris Ken RN RN [facility] Aleida Hobson, Reg Reg gb Marbella Gates Michael, PA PA mo1 Abbi DelgadilloRN RN nn1 Bebo Arreola, Reg Reg pm4 Chart Complete MTDD
--- NOTE | 2017-01-06 01:14 | EDDOCDS ---
Physician Documentation [facility] Name: Yoselyn Qiu Age: 31 yrs Sex: Female : 1985 Arrival Date: 01/03/2017 Time: 22:55 Bed Triage 3 Private MD: Jeffrey Beltran G Disposition: 01/04/17 00:06 Discharged to Home/Self Care. Impression: Pain in throat - Acute Uvulitis. - Condition is Stable. - Discharge Instructions: Salt Water Gargle, Sore Throat. - Prescriptions for Lidocaine Viscous - take 1 Teaspoon by BUCCAL route every 6 hours; 200 Teaspoon. Clindamycin HCl 300 mg Oral Capsule - take 1 capsule by ORAL route every 6 hours; 40 capsule. - Medication Reconciliation, Local Pharmacy Hours form. - Follow up: Jeffrey Beltran; When: Call to arrange an appointment; Reason: Recheck today's complaints, Continuance of care. - Problem is new. - Symptoms are unchanged. Historical: - Allergies: Amoxicillin; IV Dye; - Home Meds: 1. Prilosec 20 mg Oral cpDR 2 caps 2 times per day - PMHx: Chron's Disease; Hypothyroidism; Von Willebrand Disease; - PSHx: D & C; Colonoscopy; - Social history: Smoking status: Patient uses tobacco products, heavy tobacco smoker. No barriers to communication noted, The patient speaks fluent Guatemalan, Speaks appropriately for age. - Family history: Not pertinent. - : The pt / caregiver states he / she is not on anticoagulants. Home medication list is obtained from the patient. - Exposure Risk Screening:: None identified. Vital Signs: 01/03 22:57 BP 145 / 88; Pulse 70; Resp 16; Pulse Ox 100% on R/A; Weight 63.5 kg / 139.99 lbs; sew Height 5 ft. 2 in. (157.48 cm); Pain 10/10; 22:57 Body Mass Index 25.61 (63.50 kg, 157.48 cm) sew MDM: 23:35 Strep Screen, Nursing ordered. mo1 23:46 GATS (NEGATIVE STREP SCREEN) Ordered. EDMS 01/04 00:00 Lidocaine Viscous Liquid 2 % 15 ml Mucous Membrane in affected area once ordered. mo1 00:05 Clindamycin 300 mg PO once ordered. mo1 00:11 Financial registration complete. pm4 00:11 [facility] Payment Agreement was scanned into [employer] and attached to record. pm4 10:56 T-Sheet-- Draft Copy was scanned into [employer] and attached to record. gb Administered Medications: 00:04 Drug: Lidocaine Viscous 15 ml [Lidocaine Viscous 2 % mucosal solution (15 mL)] Route: mcp Mucous Membrane; Site: affected area; 00:09 Drug: Clindamycin 300 mg [clindamycin 150 mg capsule (2 caps)] Route: PO; mcp Signatures: Dispatcher [employer] Cris Douglas RN RN mcp Aleida Hobson, Reg Reg gb Bk Lombardi PA PA mo1 Abbi DelgadilloRN RN nn1 Bebo Arreola, Reg Reg pm4 The chart was reviewed and I authenticate all verbal orders and agree with the evaluation and treatment provided.Attachments: 00:11 [facility] Payment Agreement pm4 10:56 T-Sheet-- Draft Copy gb Chart Complete MTDD
--- NOTE | 2017-01-06 01:14 | EDDOCDS ---
Physician Documentation [facility] Name: Yoselyn Qiu Age: 31 yrs Sex: Female : 1985 Arrival Date: 01/03/2017 Time: 22:55 Bed Triage 3 Private MD: Jeffrey Beltran G Disposition: 01/04/17 00:06 Discharged to Home/Self Care. Impression: Pain in throat - Acute Uvulitis. - Condition is Stable. - Discharge Instructions: Salt Water Gargle, Sore Throat. - Prescriptions for Lidocaine Viscous - take 1 Teaspoon by BUCCAL route every 6 hours; 200 Teaspoon. Clindamycin HCl 300 mg Oral Capsule - take 1 capsule by ORAL route every 6 hours; 40 capsule. - Medication Reconciliation, Local Pharmacy Hours form. - Follow up: Jeffrey Beltran; When: Call to arrange an appointment; Reason: Recheck today's complaints, Continuance of care. - Problem is new. - Symptoms are unchanged. Historical: - Allergies: Amoxicillin; IV Dye; - Home Meds: 1. Prilosec 20 mg Oral cpDR 2 caps 2 times per day - PMHx: Chron's Disease; Hypothyroidism; Von Willebrand Disease; - PSHx: D & C; Colonoscopy; - Social history: Smoking status: Patient uses tobacco products, heavy tobacco smoker. No barriers to communication noted, The patient speaks fluent [place]er, Speaks appropriately for age. - Family history: Not pertinent. - : The pt / caregiver states he / she is not on anticoagulants. Home medication list is obtained from the patient. - Exposure Risk Screening:: None identified. Vital Signs: 01/03 22:57 BP 145 / 88; Pulse 70; Resp 16; Pulse Ox 100% on R/A; Weight 63.5 kg / 139.99 lbs; sew Height 5 ft. 2 in. (157.48 cm); Pain 10/10; 22:57 Body Mass Index 25.61 (63.50 kg, 157.48 cm) sew MDM: 23:35 Strep Screen, Nursing ordered. mo1 23:46 GATS (NEGATIVE STREP SCREEN) Ordered. EDMS 01/04 00:00 Lidocaine Viscous Liquid 2 % 15 ml Mucous Membrane in affected area once ordered. mo1 00:05 Clindamycin 300 mg PO once ordered. mo1 00:11 Financial registration complete. pm4 00:11 [facility] Payment Agreement was scanned into [employer] and attached to record. pm4 10:56 T-Sheet-- Draft Copy was scanned into [employer] and attached to record. gb Administered Medications: 00:04 Drug: Lidocaine Viscous 15 ml [Lidocaine Viscous 2 % mucosal solution (15 mL)] Route: mcp Mucous Membrane; Site: affected area; 00:09 Drug: Clindamycin 300 mg [clindamycin 150 mg capsule (2 caps)] Route: PO; mcp Signatures: Dispatcher [employer] Cris Douglas RN RN mcp Aleida Hobson, Reg Reg gb Bk Lombardi PA PA mo1 Abbi DelgadilloRN RN nn1 Bebo Arreola, Reg Reg pm4 The chart was reviewed and I authenticate all verbal orders and agree with the evaluation and treatment provided.Attachments: 00:11 [facility] Payment Agreement pm4 10:56 T-Sheet-- Draft Copy gb Chart Complete MTDD
== END 2017-01-04 00:13 | disposition home or self-care (01) ==
LOC: M ED 22:55
DX: K12.2 Cellulitis and abscess of mouth (principal); K50.90 Crohn's disease, unspecified, without complications; E03.9 Hypothyroidism, unspecified; D68.0 Von Willebrand disease; Z72.0 Tobacco use; Z79.899 Other long term (current) drug therapy; Z88.1 Allergy status to other antibiotic agents; Z91.041 Radiographic dye allergy status

== ENCOUNTER → 2017-02-17 | Outpatient (REF) | payer BC ==
[2017-02-17 18:01] LABS: BASO % 0.4 % (0.0-1.0); EOS # 0.1 K/mm3 (0.0-0.50); EOS % 1.6 % (0.0-3.0); LARGE UNSTAINED CELL # 0.1 K/mm3 (0.0-0.4); LARGE UNSTAINED CELL % 0.9 % (0.0-4.0); LYMPH # 1.8 K/mm3 (1.5-4.5); LYMPH % 20.4 % (24.0-44.0); MEAN CORPUSCULAR HEMOGLOBIN 30.3 pg (27.0-33.0); MEAN CORPUSCULAR HGB CONC 33.1 g/dl (32.0-36.5); MEAN CORPUSCULAR VOLUME 91.6 fl (80.0-96.0); MONO # 0.3 K/mm3 (0.0-0.8); MONO % 3.9 % (0.0-5.0); NEUTROPHILS # 6.3 K/mm3 (1.8-7.7); NEUTROPHILS % 72.8 % (36.0-66.0); PLATELET COUNT, AUTOMATED 197 k/mm3 (150-450); RED CELL DISTRIBUTION WIDTH 11.6 % (11.5-14.5); WHITE BLOOD COUNT 8.7 K/mm3 (4.0-10.0)
[2017-02-17 19:43] LABS: ALBUMIN 4.7 GM/DL (3.2-5.2); ALBUMIN/GLOBULIN RATIO 1.57 (1.00-1.93); ALKALINE PHOSPHATASE 63 U/L (45-117); ALT/SGPT 16 U/L (12-78); ANION GAP 6 MEQ/L (8-16); AST/SGOT 10 U/L (15-37); BILIRUBIN,TOTAL 0.4 MG/DL (0.2-1.0); BLOOD UREA NITROGEN 10 MG/DL (7-18); CALCIUM LEVEL 9.5 MG/DL (8.5-10.1); CARBON DIOXIDE LEVEL 28 MEQ/L (21-32); CHLORIDE LEVEL 105 MEQ/L (98-107); CREATININE FOR GFR 0.58 MG/DL (0.55-1.02); GLOMERULAR FILTRATION RATE > 60.0 (>60); GLUCOSE, FASTING 88 MG/DL (70-105); POTASSIUM SERUM 3.8 MEQ/L (3.5-5.1); SODIUM LEVEL 139 MEQ/L (136-145); TOTAL PROTEIN 7.7 GM/DL (6.4-8.2)
[2017-02-17 19:55] LABS: ERYTHROCYTE SEDIMENTATION RATE 8 mm/hr (0-20)
== END ==
LOC: M SFHCLERA 11:51
PROVIDERS: ATTEND Family Medicine
DX: M13.0 Polyarthritis, unspecified (principal); E03.9 Hypothyroidism, unspecified

== ENCOUNTER → 2017-02-24 | Outpatient (REF) | payer BC | LOC: M LABDRWAD 09:29 | PROVIDERS: ATTEND Physician Assistant | DX: M79.674 Pain in right toe(s) (principal) ==

== ENCOUNTER → 2017-09-05 | Outpatient (REF) | payer BC ==
[2017-09-05 19:15] LABS: ALBUMIN 4.4 GM/DL (3.2-5.2); ALBUMIN/GLOBULIN RATIO 1.57 (1.00-1.93); ALKALINE PHOSPHATASE 72 U/L (45-117); ALT/SGPT 20 U/L (12-78); ANION GAP 10 MEQ/L (8-16); AST/SGOT 4 U/L (15-37); BILIRUBIN,TOTAL 0.4 MG/DL (0.2-1.0); BLOOD UREA NITROGEN 5 MG/DL (7-18); CALCIUM LEVEL 9.5 MG/DL (8.5-10.1); CARBON DIOXIDE LEVEL 27 MEQ/L (21-32); CHLORIDE LEVEL 106 MEQ/L (98-107); CHOLESTEROL LEVEL 169 MG/DL (<200); FREE T4 0.85 NG/DL (0.76-1.46); GLOMERULAR FILTRATION RATE > 60.0 (>60); GLUCOSE, FASTING 91 MG/DL (70-105); POTASSIUM SERUM 3.2 MEQ/L (3.5-5.1); SODIUM LEVEL 143 MEQ/L (136-145); TOTAL PROTEIN 7.2 GM/DL (6.4-8.2); TRIGLYCERIDES LEVEL 135 MG/DL (<150)
[2017-09-05 19:30] LABS: FOLATE 7.5 NG/ML (>5.4); VITAMIN B12 LEVEL 411 PG/ML (247-911)
[2017-09-05 19:39] LABS: MEAN CORPUSCULAR HEMOGLOBIN 30.2 pg (27.0-33.0); MEAN CORPUSCULAR HGB CONC 32.7 g/dl (32.0-36.5); MEAN CORPUSCULAR VOLUME 92.4 fl (80.0-96.0); RED CELL DISTRIBUTION WIDTH 12.2 % (11.5-14.5)
== END ==
LOC: M SFHCADAM 15:21
PROVIDERS: ATTEND Family Medicine
DX: E03.9 Hypothyroidism, unspecified (principal); R53.83 Other fatigue

== ENCOUNTER 2017-12-09 11:22 | Emergency (ER) | payer BC ==
[2017-12-09 13:07] LABS: CONTROL LINE UCG INT CTR LINE PRESENT; URINE PREG TEST NEGATIVE (NEGATIVE)
[2017-12-09 13:14] LABS: KETONE, URINE AUTO RFX NEGATIVE (NEGATIVE); LEUKOCYTE ESTERASE UR AUTO RFX NEGATIVE (NEGATIVE); NITRITE, URINE AUTO RFX NEGATIVE (NEGATIVE); RBC, URINE AUTO RFX 1 /HPF (0-3); SPECIFIC GRAVITY UR AUTO RFX 1.004 (1.002-1.035); SQUAM EPITHELIAL CELL UR AURFX 2 /HPF (0-6); WBC, URINE AUTO RFX 1 /HPF (0-3)
== END 2017-12-09 14:43 | disposition home or self-care (01) ==
LOC: M ED 11:22
DX: R31.9 Hematuria, unspecified (principal); R06.2 Wheezing; M54.5 Low back pain; K58.9 Irritable bowel syndrome, unspecified; E03.9 Hypothyroidism, unspecified; F17.210 Nicotine dependence, cigarettes, uncomplicated; Z79.890 Hormone replacement therapy; Z79.899 Other long term (current) drug therapy; Z91.041 Radiographic dye allergy status; Z88.8 Allergy status to other drugs, medicaments and biological substances; Z88.0 Allergy status to penicillin; Z80.0 Family history of malignant neoplasm of digestive organs; Z87.39 Personal history of other diseases of the musculoskeletal system and connective tissue
CPT/HCPCS: 74176

== ENCOUNTER 2017-12-27 10:34 | Emergency (ER) | payer SELFPAY, BC | END 2017-12-27 11:30 | disposition home or self-care (01) | LOC: M ED 10:34 | DX: S61.210A Laceration without foreign body of right index finger without damage to nail, initial encounter (principal); W26.8XXA Contact with other sharp object(s), not elsewhere classified, initial encounter; Y92.511 Restaurant or cafe as the place of occurrence of the external cause; J44.9 Chronic obstructive pulmonary disease, unspecified; G89.29 Other chronic pain; F17.210 Nicotine dependence, cigarettes, uncomplicated; Z79.890 Hormone replacement therapy; Z91.041 Radiographic dye allergy status; Z88.8 Allergy status to other drugs, medicaments and biological substances; Z88.0 Allergy status to penicillin | CPT/HCPCS: 16000 ==

== ENCOUNTER → 2018-02-20 | Outpatient (REF) | payer BC ==
[2018-02-20 20:10] LABS: BASO % 0.3 % (0.0-1.0); EOS % 0.6 % (0.0-3.0); HEMOGLOBIN 14.1 g/dl (12.0-15.5); IMMATURE GRANULOCYTE % 0.1 % (0-3.0); LYMPH # 2.2 10^3/uL (1.5-4.5); LYMPH % 32.7 % (24.0-44.0); MEAN CORPUSCULAR HEMOGLOBIN 29.7 pg (27.0-33.0); MEAN CORPUSCULAR VOLUME 92.6 fl (80.0-96.0); MONO # 0.4 10^3/uL (0.0-0.8); NEUTROPHILS # 4.1 10^3/uL (1.8-7.7); NEUTROPHILS % 60.3 % (36.0-66.0); PLATELET COUNT, AUTOMATED 145 10^3/uL (150-450); RED BLOOD COUNT 4.75 10^6/uL (4.00-5.40); RED CELL DISTRIBUTION WIDTH 12.3 % (11.5-14.5); WHITE BLOOD COUNT 6.8 10^3/uL (4.0-10.0)
[2018-02-20 20:26] LABS: ALBUMIN 4.3 GM/DL (3.2-5.2); ALBUMIN/GLOBULIN RATIO 1.19 (1.00-1.93); ALKALINE PHOSPHATASE 97 U/L (45-117); ALT/SGPT 19 U/L (12-78); ANION GAP 8 MEQ/L (8-16); AST/SGOT 13 U/L (7-37); BILIRUBIN,TOTAL 0.4 MG/DL (0.2-1.0); BLOOD UREA NITROGEN 5 MG/DL (7-18); C REACTIVE PROTEIN QUANTITATIV < 0.30 MG/DL (0.00-0.30); CARBON DIOXIDE LEVEL 26 MEQ/L (21-32); CHLORIDE LEVEL 105 MEQ/L (98-107); CREATININE FOR GFR 0.68 MG/DL (0.55-1.30); GLOMERULAR FILTRATION RATE > 60.0 (>60); GLUCOSE, FASTING 82 MG/DL (70-100); POTASSIUM SERUM 2.9 MEQ/L (3.5-5.1); SODIUM LEVEL 139 MEQ/L (136-145); TOTAL PROTEIN 7.9 GM/DL (6.4-8.2)
[2018-02-20 22:03] LABS: ERYTHROCYTE SEDIMENTATION RATE 16 mm/hr (0-20)
[2018-02-25 00:06] LABS: Lyme Disease IgG Ab 18 kDa Ban Absent (.); Lyme Disease IgG Ab 23 kDa Ban Absent (.); Lyme Disease IgG Ab 28 kDa Ban Absent (.); Lyme Disease IgG Ab 30 kDa Ban Absent (.); Lyme Disease IgG Ab 39 kDa Ban Absent (.); Lyme Disease IgG Ab 41 kDa Ban Present (.); Lyme Disease IgG Ab 45 kDa Ban Absent (.); Lyme Disease IgG Ab 58 kDa Ban Absent (.); Lyme Disease IgG Ab 66 kDa Ban Absent (.); Lyme Disease IgG Ab 93 kDa Ban Absent (.); Lyme Disease IgG West Blot Int Negative (.); Lyme Disease IgG/IgM Antibodie <0.91 ISR (0.00-0.90); Lyme Disease IgM Ab 23 kDa Ban Absent (.); Lyme Disease IgM Ab 39 kDa Ban Present (.); Lyme Disease IgM Ab 41 kDa Ban Absent (.); Lyme Disease IgM West Blot Int Negative (.)
== END ==
LOC: M SFHCADAM 12:01
DX: M79.605 Pain in left leg (principal); M79.604 Pain in right leg; M25.551 Pain in right hip
CPT/HCPCS: 84443

== ENCOUNTER → 2018-02-20 | Outpatient (CLI) | payer BC | LOC: M ADAMS 12:13 | DX: M79.605 Pain in left leg (principal); M79.604 Pain in right leg; M25.551 Pain in right hip | CPT/HCPCS: 72100 ==

== ENCOUNTER → 2018-03-09 | Outpatient (CLI) | payer BC ==
[2018-03-09 20:49] LABS: ANION GAP 6 MEQ/L (8-16); BLOOD UREA NITROGEN 3 MG/DL (7-18); CALCIUM LEVEL 8.7 MG/DL (8.5-10.1); CARBON DIOXIDE LEVEL 27 MEQ/L (21-32); CHLORIDE LEVEL 110 MEQ/L (98-107); CREATININE FOR GFR 0.55 MG/DL (0.55-1.30); FREE T4 0.82 NG/DL (0.76-1.46); GLOMERULAR FILTRATION RATE > 60.0 (>60); GLUCOSE, FASTING 92 MG/DL (70-100); MAGNESIUM LEVEL 1.9 MG/DL (1.8-2.4); POTASSIUM SERUM 3.5 MEQ/L (3.5-5.1); SODIUM LEVEL 143 MEQ/L (136-145)
== END ==
LOC: M LAB 19:56
DX: E03.9 Hypothyroidism, unspecified (principal); E87.6 Hypokalemia
CPT/HCPCS: 83735

== ENCOUNTER 2018-10-28 02:51 | Emergency (ER) | payer BC | END 2018-10-28 04:46 | disposition home or self-care (01) | LOC: M ED 02:51 | DX: J04.0 Acute laryngitis (principal); R03.0 Elevated blood-pressure reading, without diagnosis of hypertension; D68.0 Von Willebrand disease; K31.84 Gastroparesis; M79.7 Fibromyalgia; E07.9 Disorder of thyroid, unspecified; F17.210 Nicotine dependence, cigarettes, uncomplicated; Z91.041 Radiographic dye allergy status; Z88.6 Allergy status to analgesic agent; Z88.8 Allergy status to other drugs, medicaments and biological substances; Z88.0 Allergy status to penicillin; Z79.899 Other long term (current) drug therapy | CPT/HCPCS: 87880 ==

== ENCOUNTER 2018-10-30 00:25 | Emergency (ER) | payer BC ==
[2018-10-30] MEDS: GI COCKTAIL 50ML BTL(HYOSCYAMINE/MAALOX/LIDOCAINE VISCOUS)(1:3:1) PO (01:32)
== END 2018-10-30 01:47 | disposition home or self-care (01) ==
LOC: M ED 00:25
DX: J02.9 Acute pharyngitis, unspecified (principal); F41.9 Anxiety disorder, unspecified; F17.210 Nicotine dependence, cigarettes, uncomplicated
CPT/HCPCS: 70360

== ENCOUNTER → 2018-12-15 | Outpatient (REF) | payer BC ==
[~2018-12-15] MED LIST: CLON0.5T8; CYCL10TA PO; DEXTROAMP-AMPHETAMIN; FLUO10TA2; GABA800T4; KEFL500C17 PO; LEVO100T5; PRED20TA PO; PROAAER10 INH; TRAM50TA2 PO; ZITHTAB PO
[2018-12-15 19:32] LABS: HEMATOCRIT 43.5 % (36.0-47.0); HEMOGLOBIN 14.3 g/dl (12.0-15.5); MEAN CORPUSCULAR HEMOGLOBIN 30.1 pg (27.0-33.0); MEAN CORPUSCULAR HGB CONC 32.9 g/dl (32.0-36.5); MEAN CORPUSCULAR VOLUME 91.6 fl (80.0-96.0); PLATELET COUNT, AUTOMATED 233 10^3/uL (150-450); RED BLOOD COUNT 4.75 10^6/uL (4.00-5.40); WHITE BLOOD COUNT 11.1 10^3/uL (4.0-10.0)
[2018-12-15 19:48] LABS: ALBUMIN 4.3 GM/DL (3.2-5.2); ALT/SGPT 18 U/L (12-78); BILIRUBIN,TOTAL 0.3 MG/DL (0.2-1.0); BLOOD UREA NITROGEN 7 MG/DL (7-18); C REACTIVE PROTEIN QUANTITATIV < 0.30 MG/DL (0.00-0.30); CALCIUM LEVEL 9.2 MG/DL (8.5-10.1); CARBON DIOXIDE LEVEL 27 MEQ/L (21-32); CHLORIDE LEVEL 106 MEQ/L (98-107); CREATININE FOR GFR 0.66 MG/DL (0.55-1.30); FREE T4 0.74 NG/DL (0.76-1.46); GLOMERULAR FILTRATION RATE > 60.0 (>60); GLUCOSE, FASTING 80 MG/DL (70-100); POTASSIUM SERUM 3.9 MEQ/L (3.5-5.1); RHEUMATOID FACTOR QUANT < 10.0 IU/ML (<15.0); SODIUM LEVEL 138 MEQ/L (136-145); TOTAL PROTEIN 7.3 GM/DL (6.4-8.2)
[2018-12-15 19:49] LABS: FOLATE 4.3 NG/ML (>5.4)
[2018-12-15 20:02] LABS: ERYTHROCYTE SEDIMENTATION RATE 5 mm/hr (0-20)
[2018-12-18 00:08] LABS: ANA (HEP2) Negative (.); CYCLIC CITRULLINATED PEPTIDE 7 units (0-19)
[2018-12-18 08:30] LABS: VITAMIN B12 LEVEL 451 PG/ML (232-1245)
== END ==
LOC: M SFHCADAM 16:06
PROVIDERS: ATTEND Family Medicine
DX: F41.8 Other specified anxiety disorders (principal); E87.6 Hypokalemia; E03.9 Hypothyroidism, unspecified; M25.60 Stiffness of unspecified joint, not elsewhere classified

== ENCOUNTER 2018-12-21 20:27 | Emergency (ER) | payer BC ==
[~2018-12-21] VITALS: Ht 157.5 cm; Wt 59.1 kg
[~2018-12-21 20:27] MED LIST changes: -TRAM50TA2 PO
[2018-12-21 20:31] VITALS: BP 149/91
[2018-12-21] MEDS ORDERED: CYCLOBENZAPRINE 10 MG TAB PO ONE (21:30)
[2018-12-21] MEDS ORDERED: traMADol 50 MG TAB PO ONE (21:30)
[2018-12-21] MEDS ORDERED: CYCL10TA PO (21:40)
[2018-12-21] MEDS ORDERED: TRAM50TA2 PO (21:40)
== END 2018-12-21 22:02 | disposition home or self-care (01) ==
LOC: M ED 20:27
DX: M54.12 Radiculopathy, cervical region (principal); Z79.899 Other long term (current) drug therapy; Z88.0 Allergy status to penicillin; Z88.6 Allergy status to analgesic agent; Z88.8 Allergy status to other drugs, medicaments and biological substances; Z91.041 Radiographic dye allergy status

== ENCOUNTER 2019-01-28 01:48 | Emergency (ER) | payer BC ==
[~2019-01-28] VITALS: Ht 157.5 cm; Wt 52.3 kg
[~2019-01-28 01:48] MED LIST changes: +TRAM50TA2 PO
--- NOTE | 2019-01-28 02:36 | REP ---
Clinical: Trauma with right hip pain. Technique: Frontal view of the pelvis with neutral and frog lateral views of the right hip. Findings: Osseous structures and joint spaces are intact and normal. Hip joints appear symmetric on frontal pelvic radiograph. No acute fracture or dislocation. No evidence for healed injury. No significant degenerative or congenital abnormalities are appreciated. Surrounding soft tissues are unremarkable. Impression: Normal pelvis and right hip series. Electronically Signed by Arturo Montes MD 01/28/2019 02:28 A
[2019-01-28 02:49] VITALS: BP 144/98
== END 2019-01-28 02:50 | disposition home or self-care (01) ==
LOC: M ED 01:48
DX: S80.11XA Contusion of right lower leg, initial encounter (principal); S00.83XA Contusion of other part of head, initial encounter; Y04.8XXA Assault by other bodily force, initial encounter; Y92.098 Other place in other non-institutional residence as the place of occurrence of the external cause; K58.9 Irritable bowel syndrome, unspecified; D69.1 Qualitative platelet defects; Z91.041 Radiographic dye allergy status; Z88.8 Allergy status to other drugs, medicaments and biological substances; Z88.0 Allergy status to penicillin; Z79.899 Other long term (current) drug therapy

== ENCOUNTER 2019-02-19 03:47 | Emergency (ER) | payer BC ==
[~2019-02-19] VITALS: Ht 157.5 cm; Wt 54.5 kg
[~2019-02-19 03:47] MED LIST changes: +BACT400T PO
[2019-02-19] MEDS ORDERED: ADDE10CA3 PO (04:07)
[2019-02-19] MEDS: diphenhydrAMINE INJ 50MG/ML VIAL (J1200) IV STA (04:09)
[2019-02-19] MEDS: GENTAMICIN 0.3% OPHTH SOL 5 ML BTL OS ONE (04:25)
[2019-02-19] MEDS: MORPHINE 2 MG/ML 1ML SYRINGE (J2270) IV ONE (04:45)
[2019-02-19] MEDS: NAFCILLIN SOD 1 GM in D5W MINI-BAG PLUS 50 ML IV ONE (04:50)
[2019-02-19] MEDS ORDERED: DICL25CA PO (05:24)
[2019-02-19 05:30] VITALS: BP 141/90
[2019-02-19] MEDS: MUPIROCIN 2% OINT 22 GM TUBE TOP ONE (06:00)
[2019-02-19] MEDS: traMADol 50 MG TAB (BULK 4 TAB ED) PO ONE (06:00)
== END 2019-02-19 06:15 | disposition home or self-care (01) ==
LOC: M ED 03:47
DX: J32.9 Chronic sinusitis, unspecified (principal); H10.9 Unspecified conjunctivitis; D68.0 Von Willebrand disease; F17.200 Nicotine dependence, unspecified, uncomplicated; Z79.899 Other long term (current) drug therapy; Z88.0 Allergy status to penicillin; Z88.8 Allergy status to other drugs, medicaments and biological substances; Z91.041 Radiographic dye allergy status
CPT/HCPCS: 87081; 96365; 96375; 99284; J1200; J2270

== ENCOUNTER → 2019-07-05 | Outpatient (REF) | payer OTHER, SELFPAY ==
[~2019-07-05] MED LIST changes: +ADDE10CA3 PO; +DICL25CA PO
[2019-07-05 16:01] LABS: BASO % 0.4 % (0.0-1.0); EOS # 0.2 10^3/uL (0.0-0.50); EOS % 1.6 % (0.0-3.0); HEMATOCRIT 40.6 % (36.0-47.0); HEMOGLOBIN 13.3 g/dl (12.0-15.5); LYMPH # 2.7 10^3/uL (1.5-4.5); LYMPH % 26.2 % (24.0-44.0); MEAN CORPUSCULAR HEMOGLOBIN 30.5 pg (27.0-33.0); MEAN CORPUSCULAR HGB CONC 32.8 g/dl (32.0-36.5); MEAN CORPUSCULAR VOLUME 93.1 fl (80.0-96.0); MONO # 0.7 10^3/uL (0.0-0.8); MONO % 6.7 % (0.0-5.0); NEUTROPHILS # 6.6 10^3/uL (1.8-7.7); NEUTROPHILS % 64.8 % (36.0-66.0); PLATELET COUNT, AUTOMATED 194 10^3/uL (150-450); RED BLOOD COUNT 4.36 10^6/uL (4.00-5.40); WHITE BLOOD COUNT 10.2 10^3/uL (4.0-10.0)
[2019-07-05 16:23] LABS: ERYTHROCYTE SEDIMENTATION RATE 5 mm/hr (0-20)
== END ==
LOC: M SFHCPLAZ 14:21
PROVIDERS: ATTEND Internal Medicine Infectious Disease
DX: M25.50 Pain in unspecified joint (principal); A49.02 Methicillin resistant Staphylococcus aureus infection, unspecified site

== ENCOUNTER → 2019-07-05 | Outpatient (REF) | payer OTHER, SELFPAY | LOC: M SFHCPLAZ 15:51 | PROVIDERS: ATTEND Internal Medicine Infectious Disease | DX: A49.02 Methicillin resistant Staphylococcus aureus infection, unspecified site (principal) ==

== ENCOUNTER 2019-11-10 13:05 | Emergency (ER) | payer OTHER ==
[~2019-11-10] VITALS: Ht 157.5 cm; Wt 59.0 kg
[~2019-11-10 13:05] MED LIST changes: +CLON0.5T2; -CLON0.5T8
[2019-11-10 13:06] VITALS: BP 138/91
[2019-11-10] MEDS ORDERED: AMMO12LO (13:13)
[2019-11-10 14:11] LABS: BASO % 0.3 % (0.0-1.0); EOS # 0.2 10^3/uL (0.0-0.5); EOS % 1.8 % (0.0-3.0); HEMATOCRIT 42.2 % (36.0-47.0); HEMOGLOBIN 13.6 g/dl (12.0-15.5); LYMPH # 2.6 10^3/uL (1.5-5.0); LYMPH % 28.4 % (24.0-44.0); MEAN CORPUSCULAR HGB CONC 32.2 g/dl (32.0-36.5); MEAN CORPUSCULAR VOLUME 93.2 fl (80.0-96.0); MONO # 0.7 10^3/uL (0.0-0.8); MONO % 7.4 % (0.0-5.0); NEUTROPHILS # 5.5 10^3/uL (1.5-8.5); NEUTROPHILS % 61.8 % (36.0-66.0); PLATELET COUNT, AUTOMATED 205 10^3/uL (150-450); RED BLOOD COUNT 4.53 10^6/uL (4.00-5.40)
== END 2019-11-10 15:58 | disposition home or self-care (01) ==
LOC: M ED 13:05
DX: J34.89 Other specified disorders of nose and nasal sinuses (principal); F41.9 Anxiety disorder, unspecified; D68.0 Von Willebrand disease; L40.50 Arthropathic psoriasis, unspecified; F17.210 Nicotine dependence, cigarettes, uncomplicated

== ENCOUNTER 2019-12-23 19:44 | Emergency (ER) | payer OTHER ==
[~2019-12-23] VITALS: Ht 157.5 cm; Wt 54.5 kg
[~2019-12-23 19:44] MED LIST changes: +AMMO12LO; -CLON0.5T2; +CLON0.5T2 PO
[2019-12-23] MEDS ORDERED: TRANEXAMIC ACID ONE (22:15)
[2019-12-23] MEDS ORDERED: DILUENT ONE (22:15)
[2019-12-24] MEDS ORDERED: TRANEXAMIC ACID IV ONE (01:00)
[2019-12-24] MEDS ORDERED: AMIN250S PO (01:30)
[2019-12-24 01:53] VITALS: BP 158/87
== END 2019-12-24 01:55 | disposition home or self-care (01) ==
LOC: M ED 19:44 → EDBD 19:44 → M ED 12-24 01:55
DX: L40.9 Psoriasis, unspecified (principal); M79.7 Fibromyalgia; F33.9 Major depressive disorder, recurrent, unspecified; F41.9 Anxiety disorder, unspecified; K58.9 Irritable bowel syndrome, unspecified; F17.200 Nicotine dependence, unspecified, uncomplicated; Z91.041 Radiographic dye allergy status; Z79.899 Other long term (current) drug therapy; Z88.0 Allergy status to penicillin; Z87.09 Personal history of other diseases of the respiratory system

== ENCOUNTER → 2020-08-20 | Outpatient (CLI) | payer OTHER ==
[~2020-08-20] MED LIST changes: +AMIN250S PO; +CYCL-707 PO; -CYCL10TA PO
--- NOTE | 2020-08-24 09:12 | REP ---
LEFT KNEE SERIES HISTORY: Injury. TECHNIQUE: Five views of the left knee are performed. FINDINGS: There is no evidence of acute fracture, dislocation, or intrinsic bone disease. The joint spaces are unremarkable. I do not see a significant joint effusion. IMPRESSION: No evidence of fracture or dislocation. MTDD
== END ==
LOC: M WUC 16:56
PROVIDERS: ATTEND Physician Assistant
DX: S87.02XA Crushing injury of left knee, initial encounter (principal); X58.XXXA Exposure to other specified factors, initial encounter; Y92.89 Other specified places as the place of occurrence of the external cause

== ENCOUNTER 2021-01-23 22:29 | Emergency (ER) | payer OTHER ==
[~2021-01-23] VITALS: Ht 157.5 cm; Wt 61.2 kg
[2021-01-24 01:04] LABS: BASO # 0.1 10^3/uL (0.0-0.2); BASO % 0.7 % (0.0-1.0); EOS # 0.1 10^3/uL (0.0-0.5); EOS % 1.1 % (0.0-3.0); HEMATOCRIT 42.9 % (36.0-47.0); LYMPH % 25.1 % (24.0-44.0); MEAN CORPUSCULAR HEMOGLOBIN 29.7 pg (27.0-33.0); MEAN CORPUSCULAR HGB CONC 32.6 g/dl (32.0-36.5); MEAN CORPUSCULAR VOLUME 90.9 fl (80.0-96.0); MONO # 0.7 10^3/uL (0.0-0.8); MONO % 8.4 % (2.0-8.0); NEUTROPHILS # 5.2 10^3/uL (1.5-8.5); NEUTROPHILS % 64.2 % (36.0-66.0); PLATELET COUNT, AUTOMATED 239 10^3/uL (150-450); RED BLOOD COUNT 4.72 10^6/uL (4.00-5.40); WHITE BLOOD COUNT 8.1 10^3/uL (4.0-10.0)
[2021-01-24 01:37] LABS: ALBUMIN 4.3 GM/DL (3.2-5.2); BILIRUBIN,DIRECT 0.1 MG/DL (0.0-0.2); BILIRUBIN,TOTAL 0.3 MG/DL (0.2-1.0); ETHYL ALCOHOL (ETHANOL) 0.075 % (0.000-0.010); TOTAL PROTEIN 7.6 GM/DL (6.4-8.2)
[2021-01-24 01:46] LABS: AMPHETAMINES LEVEL URINE POSITIVE (NEGATIVE); BARBITURATES URINE NEGATIVE (NEGATIVE); BENZODIAZEPINES URINE NEGATIVE (NEGATIVE); CANNABINOIDS URINE POSITIVE (NEGATIVE); COCAINE METABOLITE URINE NEGATIVE (NEGATIVE); METHADONE URINE NEGATIVE (NEGATIVE); OPIATES URINE POSITIVE (NEGATIVE); PHENCYCLIDINE URINE NEGATIVE (NEGATIVE)
--- NOTE | 2021-01-24 01:51 | REPVR ---
PROCEDURE INFORMATION: Exam: XR Soft Tissue Neck Exam date and time: 01/24/2021 1:24 AM Age: 35 years old Clinical indication: Other: Hoarseness TECHNIQUE: Imaging protocol: XR of the soft tissues of the neck. COMPARISON: CR Soft Tissue Neck 10/30/2018 12:57 AM FINDINGS: Airway: Normal. No abnormal narrowing. Soft tissues: Normal. Normal epiglottis. Bones/joints: Unremarkable. IMPRESSION: Negative soft tissue neck. Electronically signed by: Can Johnson On 01/24/2021 01:52:15 AM
[2021-01-24 02:52] VITALS: BP 170/106
== END 2021-01-24 03:02 | disposition home or self-care (01) ==
LOC: M ED 22:29
DX: J04.0 Acute laryngitis (principal); E03.9 Hypothyroidism, unspecified; F17.200 Nicotine dependence, unspecified, uncomplicated; Z88.1 Allergy status to other antibiotic agents; Z88.6 Allergy status to analgesic agent; Z88.8 Allergy status to other drugs, medicaments and biological substances

== ENCOUNTER 2021-04-07 05:48 | Emergency (ER) | payer OTHER ==
[~2021-04-07] VITALS: Ht 157.5 cm; Wt 56.8 kg
[2021-04-07] MEDS ORDERED: PERCOCET 5MG/325MG TAB PO ONE (07:05)
--- NOTE | 2021-04-07 08:42 | REP ---
INDICATION: trauma. COMPARISON: Chest 12/05/2016. TECHNIQUE: AP and lateral views thoracic spine. FINDINGS: There is no compression fracture. Vertebral bodies are normal in height and well aligned. There is mild diffuse spurring. Mild disc space narrowing at multiple levels. Posterior elements are intact. IMPRESSION: No fracture or dislocation. Mild degenerative changes. <Electronically signed by Emanuel Ervin > 04/07/21 [id number]
--- NOTE | 2021-04-07 08:44 | REP ---
INDICATION: trauma. COMPARISON: None. TECHNIQUE: Five views lumbosacral spine. FINDINGS: There is no compression fracture or malalignment. There is normal lumbar lordosis. There is mild disc space narrowing at L2-3 and L5-S1. There is sclerosis at the facets of L5-S1. The posterior elements are intact. IUD is seen in the pelvis. IMPRESSION: No fracture or dislocation. Mild degenerative changes. <Electronically signed by Emanuel Ervin > 04/07/21 [id number]
[2021-04-07 10:31] VITALS: BP 184/96
== END 2021-04-07 10:34 | disposition home or self-care (01) ==
LOC: M ED 05:48
DX: S30.0XXA Contusion of lower back and pelvis, initial encounter (principal); W17.89XA Other fall from one level to another, initial encounter; Y92.89 Other specified places as the place of occurrence of the external cause; Y93.89 Activity, other specified; Y99.8 Other external cause status; R03.0 Elevated blood-pressure reading, without diagnosis of hypertension; D68.0 Von Willebrand disease; M79.7 Fibromyalgia; E07.9 Disorder of thyroid, unspecified; F17.200 Nicotine dependence, unspecified, uncomplicated; Z79.899 Other long term (current) drug therapy; Z91.041 Radiographic dye allergy status; Z88.0 Allergy status to penicillin; Z88.8 Allergy status to other drugs, medicaments and biological substances; Z82.49 Family history of ischemic heart disease and other diseases of the circulatory system

== ENCOUNTER 2021-05-02 18:01 | Emergency (ER) | payer OTHER ==
[~2021-05-02] VITALS: Ht 157.5 cm; Wt 65.0 kg
[2021-05-02 19:30] VITALS: BP 198/112
== END 2021-05-02 20:08 | disposition home or self-care (01) ==
LOC: M ED 18:01
DX: N64.4 Mastodynia (principal); R03.0 Elevated blood-pressure reading, without diagnosis of hypertension; N60.19 Diffuse cystic mastopathy of unspecified breast; F17.200 Nicotine dependence, unspecified, uncomplicated; Z88.1 Allergy status to other antibiotic agents; Z91.041 Radiographic dye allergy status

== ENCOUNTER 2021-05-10 19:33 | Inpatient (IN) | payer OTHER ==
[~2021-05-10] VITALS: Ht 157.5 cm; Wt 64.2 kg
[2021-05-10 20:26] LABS: BASO # 0.1 10^3/uL (0.0-0.2); BASO % 0.9 % (0.0-1.0); EOS # 0.3 10^3/uL (0.0-0.5); EOS % 3.3 % (0.0-3.0); HEMATOCRIT 47.3 % (36.0-47.0); HEMOGLOBIN 15.5 g/dl (12.0-15.5); LYMPH # 2.2 10^3/uL (1.5-5.0); LYMPH % 24.9 % (24.0-44.0); MEAN CORPUSCULAR HEMOGLOBIN 30.9 pg (27.0-33.0); MEAN CORPUSCULAR HGB CONC 32.8 g/dl (32.0-36.5); MEAN CORPUSCULAR VOLUME 94.4 fl (80.0-96.0); MONO # 0.7 10^3/uL (0.0-0.8); MONO % 7.5 % (2.0-8.0); NEUTROPHILS # 5.7 10^3/uL (1.5-8.5); NEUTROPHILS % 63.1 % (36.0-66.0); PLATELET COUNT, AUTOMATED 244 10^3/uL (150-450); RED BLOOD COUNT 5.01 10^6/uL (4.00-5.40)
[2021-05-10] MEDS ORDERED: LABETALOL 100MG/20ML VIAL IV STA ×2 (20:33→22:37)
[2021-05-10] MEDS ORDERED: NITROGLYCERIN 0.4 MG SUBL TABLET SL STA (20:35)
[2021-05-10] MEDS ORDERED: GI COCKTAIL 50ML BTL(HYOSCYAMINE/MAALOX/LIDOCAINE VISCOUS)(1:3:1) PO ONE (20:55)
[2021-05-10 21:00] LABS: ALBUMIN 4.2 GM/DL (3.2-5.2); ALT/SGPT 27 U/L (12-78); BILIRUBIN,DIRECT 0.1 MG/DL (0.0-0.2); BILIRUBIN,TOTAL 0.3 MG/DL (0.2-1.0); BLOOD UREA NITROGEN 11 MG/DL (7-18); CARBON DIOXIDE LEVEL 27 MEQ/L (21-32); CHLORIDE LEVEL 109 MEQ/L (98-107); CK-MB VALUE MASS 2.3 NG/ML (<3.6); CPK CREATINE PHOSPHOKINASE 77 U/L (26-192); GLOMERULAR FILTRATION RATE > 60.0 (>60); GLUCOSE, FASTING 82 MG/DL (70-100); LIPASE 139 U/L (73-393); MB/CK RELATIVE INDEX 2.99 (< OR =4); POTASSIUM SERUM 3.3 MEQ/L (3.5-5.1); SODIUM LEVEL 140 MEQ/L (136-145); TOTAL PROTEIN 7.9 GM/DL (6.4-8.2); TROPONIN I < 0.02 NG/ML (< 0.10)
[2021-05-10] MEDS ORDERED: ACETAMINOPHEN TAB 650MG DOSE (2X325MG) PO ONE (21:10)
[2021-05-10 21:24] LABS: HCG, SERUM QUALITATIVE NEGATIVE (NEGATIVE)
--- NOTE | 2021-05-10 21:53 | ECGEPIP ---
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
[2021-05-10] MEDS ORDERED: POTASSIUM CHLORIDE 10 MEQ SR TABLET PO ONE (21:55)
--- NOTE | 2021-05-10 21:55 | REPVR ---
PROCEDURE INFORMATION: Exam: XR Chest Exam date and time: 05/10/2021 8:14 PM Age: 36 years old Clinical indication: Pain; Chest pressure; Additional info: Chest pain TECHNIQUE: Imaging protocol: XR of the chest. Views: 1 view. COMPARISON: CR Chest, 2 view PA, Lat 12/05/2016 11:00 AM FINDINGS: Lungs: Clear. No consolidation. Pleural spaces: No pleural effusion. No pneumothorax. Heart/Mediastinum: Unremarkable. No cardiomegaly. Bones/joints: Unremarkable. IMPRESSION: No acute findings. Electronically signed by: Catracho Hollis On 05/10/2021 21:55:03 PM
--- NOTE | 2021-05-10 22:00 | REPVR ---
PROCEDURE INFORMATION: Exam: CT Chest Without Contrast; Diagnostic Exam date and time: 05/10/2021 9:36 PM Age: 36 years old Clinical indication: Pain; Chest pressure; Additional info: Chest pain TECHNIQUE: Imaging protocol: Diagnostic computed tomography of the chest without contrast. 3D rendering (Not supervised by radiologist): MIP and/or 3D reconstructed images were created by the technologist. Radiation optimization: All CT scans at this facility use at least one of these dose optimization techniques: automated exposure control; mA and/or kV adjustment per patient size (includes targeted exams where dose is matched to clinical indication); or iterative reconstruction. COMPARISON: CR PORTABLE CHEST X-RAY 05/10/2021 8:07 PM FINDINGS: Lungs: Unremarkable. No consolidation. No masses. Pleural spaces: Unremarkable. No pneumothorax. No pleural effusion. Heart: Normal heart size. No pericardial effusion. Aorta: Unremarkable. No aortic aneurysm. Lymph nodes: No enlarged lymph nodes. Bones/joints: Unremarkable. No acute fracture. Soft tissues: Unremarkable. IMPRESSION: No acute findings. Electronically signed by: Catracho Hollis On 05/10/2021 22:00:27 PM
[2021-05-10] MEDS ORDERED: clonazePAM 0.5 MG TAB PO ONE (22:05)
--- NOTE | 2021-05-10 22:29 | REPVR ---
PROCEDURE INFORMATION: Exam: CT Head Without Contrast Exam date and time: 05/10/2021 9:36 PM Age: 36 years old Clinical indication: Pain; Headache not specified; Additional info: HTN headache TECHNIQUE: Imaging protocol: Computed tomography of the head without contrast. Radiation optimization: All CT scans at this facility use at least one of these dose optimization techniques: automated exposure control; mA and/or kV adjustment per patient size (includes targeted exams where dose is matched to clinical indication); or iterative reconstruction. COMPARISON: 1. CT Neck without contrast 2015-04-10 11:25 2. CR Soft Tissue Neck 2021-01-23 23:39 FINDINGS: Brain: Normal. No hemorrhage. Unremarkable white matter. No mass effect. Cerebral ventricles: No ventriculomegaly. Paranasal sinuses: Visualized sinuses are unremarkable. No fluid levels. Mastoid air cells: Visualized mastoid air cells are well aerated. Bones/joints: Unremarkable. No acute fracture. Soft tissues: Unremarkable. IMPRESSION: No acute intracranial abnormality. Electronically signed by: Holger Myrick On 05/10/2021 22:28:51 PM
[2021-05-10] MEDS ORDERED: MAALOX 30 ML SUSP *UDC PO PRN (22:50)
[2021-05-10] MEDS ORDERED: AMIN250S PO (22:50)
[2021-05-10] MEDS ORDERED: MOM 30ML SUSPENSION UDC PO PRN (22:50)
[2021-05-10] MEDS ORDERED: ADDE10TA PO (22:50)
--- NOTE | 2021-05-10 22:55 | HPEPDOC ---
[facility] Medical History & Physical Date of Admission May 10, 2021 Date of Service: May 10, 2021 Primary Care Physician: CHAVA LOPEZ PA-C Attending Physician: JANEEN SANCHEZ MD History and Physical TIME OF SERVICE: :17 CHIEF COMPLAINT: chest pressure HISTORY OF PRESENT ILLNESS: has had 7/10 in severity right sided chest pressure for 2 weeks; she was evaluated in the ER on May 02 and told that it was due to a fibroadenoma; she is in the process of being referred to . She has also been having 9/10 in severity headaches that affect the front and back of her head, along with sensitivity to light and nausea; she denies having a hx of migraines. She denies vomiting, feeling dizzy or missing doses of her medications. REVIEW OF SYSTEMS: 12-point review of systems negative except as listed in HPI PAST MEDICAL/ SURGICAL HISTORY: Von Willebrand dz, essential HTN, anxiety/depression, Gastroparesis, Fibroids, IBS, D&C SOCIAL HISTORY: she smokes, drinks alcohol occasionally, finished high school, lives with her sig other and children FAMILY HISTORY: Mother RA, HI, HTN, DM / Father HTN / Daughter Von Willebrand ALLERGIES: Please see below. HOME MEDICATIONS: Please see below. PHYSICAL EXAMINATION: Vital Signs Date Time Temp Pulse Resp B/P (MAP) Pulse Ox O2 Delivery O2 Flow Rate FiO2 05/10/21 19:34 98.5 115 24 222/140 (167) 99 Room Air GENERAL APPEARANCE: well-nourished and developed / anxious HEENT: mild conjunctival injection / MMM&P CARDIOVASCULAR: RRR/NMRG / left sided chest pain reproducible w palpation of the chest / no LE edema LUNGS: CTAB on RA ABDOMEN: contour convex MUSCULOSKELETAL: NCAT / ROMIx 4 INTEGUMENT: slightly flushed NEUROLOGICAL: CN 2-12 intact / speech not dysarthric PSYCHIATRIC: A&O x3 / able to understand and follow all commands LABORATORY DATA: IMAGING: Chest xray IMPRESSION: No acute findings. / CT head IMPRESSION: No acute intracranial abnormality. / CT chest IMPRESSION: No acute findings. MICROBIOLOGY: respiratory panel neg ASSESSMENT: is a 36 yr old w Von Willebrand dz, essential HTN, anxiety/depression, Gastroparesis, Fibroids & IBS who will be admitted for HTN Urgency. PLAN: 1 Hypertensive Urgency Associated symptoms include MALHOTRA and possibly chest pain ? There are no signs of end-organ damage The trigger of the acute elevation in her BP may be tobacco use and Adderall use; she denies NSAID or caffeine use The EKG, Troponins, Ca++, CT head, CT hest and Chest x-ray are unremarkable Plan: admit to PCU / will aim to lower BP by 25% w/in the first 2-4 hours with target BP of <160/100 within the next 24H / avoid excessive environmental stimuli / start low dose amlodipine and lisinopril / low salt diet / she can follow up with her PCP to discuss lift style modifications that can help lower her BP & possibly weaning off Adderall / smoking cessation education 2 Hypokalemia Plan: replete K & f/u Mg 3 Anxiety / Other Psychiatric disorders ? Plan: Clonazepam & Adderall DVT px w SCDs Dispo: home after at least 2 midnights stay Home Medications Scheduled Chlorthalidone (Chlorthalidone) 25 Mg Tablet, 12.5 MG PO DAILY Dextroamphetamine/Amphetamine (Adderall 10 mg Tablet) 10 Mg Tablet, 2 TAB PO BID TAKES IN THE MORNING AND AROUND NOONTIME Nifedipine (Nifedipine ER) 30 Mg Tab.er.24, 30 MG PO DAILY Scheduled PRN Aminocaproic Acid (Aminocaproic Acid) 250 Mg/1 Ml Solution, 1,250 MG PO QID PRN for BLEEDING USE FOR 3 DAYS WITH ANY MUCOSAL BLEEDING Clonazepam (Clonazepam) 0.5 Mg Tab, 0.5 MG PO BID PRN for ANXIETY Allergies Coded Allergies: Contrast Media (Verified Allergy, Unknown, 02/19/19) mother had allergic reaction amoxicillin (Verified Allergy, Unknown, 02/19/19) hives-pt has had penicillins since and okay but not amoxicillin aspirin (Verified Allergy, Unknown, 02/19/19) von willibrand A-FIB/CHADSVASC A-FIB History Current/History of A-Fib/PAF?: No Current PO Anticoag Therapy: No JANEEN SANCHEZ MD May 10, 2021 22:55
[2021-05-10] MEDS ORDERED: clonazePAM 0.5 MG TAB PO PRN (23:45)
[2021-05-11 01:46] LABS: RSV AMPLIFICATION NEGATIVE (NEGATIVE)
[2021-05-11] MEDS: ADDERALL 5 MG TAB PO SCH ×2 (05:32→13:18)
[2021-05-11] MEDS: ACETAMINOPHEN TAB 650MG DOSE (2X325MG) PO PRN (05:32)
[2021-05-11 08:05] LABS: HEMATOCRIT 47.2 % (36.0-47.0); HEMOGLOBIN 15.3 g/dl (12.0-15.5); MEAN CORPUSCULAR HEMOGLOBIN 30.9 pg (27.0-33.0); MEAN CORPUSCULAR HGB CONC 32.4 g/dl (32.0-36.5); MEAN CORPUSCULAR VOLUME 95.4 fl (80.0-96.0); PLATELET COUNT, AUTOMATED 243 10^3/uL (150-450); RED BLOOD COUNT 4.95 10^6/uL (4.00-5.40)
[2021-05-11] MEDS ORDERED: LABETALOL 100MG/20ML VIAL IV STA (08:31)
[2021-05-11 08:39] LABS: BLOOD UREA NITROGEN 11 MG/DL (7-18); CALCIUM LEVEL 9.5 MG/DL (8.5-10.1); CARBON DIOXIDE LEVEL 27 MEQ/L (21-32); CHLORIDE LEVEL 107 MEQ/L (98-107); CREATININE FOR GFR 0.59 MG/DL (0.55-1.30); GLOMERULAR FILTRATION RATE > 60.0 (>60); GLUCOSE, FASTING 78 MG/DL (70-100); POTASSIUM SERUM 4.4 MEQ/L (3.5-5.1); SODIUM LEVEL 139 MEQ/L (136-145)
[2021-05-11] MEDS ORDERED: LISINOPRIL *2.5 MG* TAB PO SCH (09:00)
--- NOTE | 2021-05-11 10:01 | REP ---
INDICATION: Accelerated HTN with SBP in 200s / r/o renal artery stenosis COMPARISON: None TECHNIQUE: Real time de scale ultrasound examination using curved array transducer followed by color Doppler evaluation of the renal vasculature. FINDINGS: The bilateral kidneys demonstrate echogenic pyramids suggesting the possibility of medullary sponge kidney. No hydronephrosis. Right kidney measures 12.3 x 4.6 x 4.4 cm. Left kidney measures 12.4 x 5.5 x 5.7 cm and includes 1.2 cm lower pole cyst.. Color Doppler evaluation. Peak aortic velocity: 75 centimeters/second RIGHT KIDNEY Renal arterial velocity: 116 centimeters/second Renal-aortic ratio: 1.5 Intrarenal resistive indices: 0.51-0.64 Intrarenal acceleration times: 0.041-0.058 LEFT KIDNEY Renal arterial velocity: 91 centimeters/second Renal-aortic ratio: 1.2 Intrarenal resistive indices: 0.48-0.53 Intrarenal acceleration times: 0.039-0.050 IMPRESSION: 1. Kidneys suggest medullary nephrocalcinosis and should be correlated clinically. Differential diagnosis may include dehydration. No hydronephrosis. Incidental 1.2 cm left lower pole renal cyst.. 2. Doppler interegation without sonographic evidence for renal arterial stenosis. <Electronically signed by Arturo Montes > 05/11/21 [id number]
[2021-05-11 11:00] VITALS: BP 176/108
[2021-05-11 11:10] VITALS: BP 170/100
[2021-05-11 12:00] VITALS: BP 180/120
[2021-05-11] MEDS: NIFEdipine 30 MG XL TAB PO SCH (13:20)
[2021-05-11] MEDS: CHLORTHALIDONE 12.5MG PER 1/2 TABLET PO SCH (14:16)
[2021-05-11 16:00] VITALS: BP 140/98
[2021-05-11 16:11] LABS: APPEARANCE, URINE HAZY (CLEAR); BACTERIA, URINE AUTO NEGATIVE (NEGATIVE); BILIRUBIN, URINE AUTO NEGATIVE (NEGATIVE); BLOOD, URINE BLOOD NEGATIVE (NEGATIVE); COLOR, URINE YELLOW (YELLOW); GLUCOSE, URINE (UA) AUTO NEGATIVE (NEGATIVE); KETONE, URINE AUTO NEGATIVE (NEGATIVE); LEUKOCYTE ESTERASE, URINE AUTO NEGATIVE (NEGATIVE); NITRITE, URINE AUTO NEGATIVE (NEGATIVE); PROTEIN, URINE AUTO NEGATIVE (NEGATIVE); RBC, URINE AUTO 0 /HPF (0-3); SQUAMOUS EPITHELIAL CELL UR AU 0 /HPF (0-6); UROBILINOGEN, URINE AUTO 0.2 mg/dL (0.0-2.0); WBC, URINE AUTO 0 /HPF (0-3)
[2021-05-11 16:32] LABS: AMPHETAMINES LEVEL URINE POSITIVE (NEGATIVE); BARBITURATES URINE NEGATIVE (NEGATIVE); BENZODIAZEPINES URINE NEGATIVE (NEGATIVE); CANNABINOIDS URINE POSITIVE (NEGATIVE); COCAINE METABOLITE URINE NEGATIVE (NEGATIVE); METHADONE URINE NEGATIVE (NEGATIVE); OPIATES URINE NEGATIVE (NEGATIVE); PHENCYCLIDINE URINE NEGATIVE (NEGATIVE)
--- NOTE | 2021-05-11 19:30 | IPNPDOC ---
Text Note Date of Service The patient was seen on 05/11/21. NOTE SUBJECTIVE: Patient feels well, denies chest pain, denies any other complaints. PHYSICAL EXAMINATION: VITAL SIGNS: reviewed GENERAL APPEARANCE: Awake, alert, oriented x 3. NAD, sitting in chair HEENT: Atraumatic, normocephalic. Eyes are anicteric. Mucous membranes are pink and moist. CARDIOVASCULAR: NSR, regular rhythm, no noted murmurs LUNGS: CTAB ABDOMEN: Normoactive sounds, soft, nondistended. No rebound tenderness or guarding. MSK: No obvious deformities EXTREMITIES: No lower extremity edema, no apparent rashes/petechiae. NEUROLOGICAL: Awake, speech is clear, AOx3 PSYCHIATRIC: euthymic LABORATORY DATA: See below. IMAGING: Renal US: IMPRESSION: 1. Kidneys suggest medullary nephrocalcinosis and should be correlated clinically. Differential diagnosis may include dehydration. No hydronephrosis. Incidental 1.2 cm left lower pole renal cyst.. 2. Doppler interegation without sonographic evidence for renal arterial stenosis. ASSESSMENT: Ms. Qiu is a 36 y/o female with vonWillebrand's disease who was admitted for hypertensive urgency of unclear etiology. PLAN: # HTN: Patient required an additional dose of Labetalol this morning but since starting Nifedipine and chlorthalidone her blood pressures have been better controlled. Will likely increase dosing tomorrow based on overnight BPs to achieve goal of <140/90. Will likely require Cardiology evaluation as outpatient as renal US did not show any renal artery stenosis. UDS positive for amphetamines and THC which patient admits to utilizing. Meds: - Nifedipine 30mg daily - Chlorthalidone 12.5mg daily - BP goal <140/90 - plasma free metanephrines - echocardiogram for cardiac pain in setting of HTN - protein/creatinine ratio - uric acid level - fasting lipids in the morning - tele # ADHD: Continue Adderall, however encourage patient to consider tapering off of this as it could be exacerbating her blood pressures. DISPO: med surg tele CODE: Full DIET: Cardiac DVT PROPHY: SCDs and ambulation CONSULTS: None VS,Fishbone, I+O VS, Fishbone, I+O Laboratory Tests 05/10/21 20:04 05/11/21 07:49 Vital Signs Date Time Temp Pulse Resp B/P (MAP) Pulse Ox O2 Delivery O2 Flow Rate FiO2 05/11/21 16:00 97.8 86 18 140/98 (112) 97 Room Air GRIFFIN CHAPPELL MD [facility] May 11, 2021 19:30
[2021-05-11 19:47] LABS: URIC ACID 2.8 MG/DL (2.6-6.0)
[2021-05-11 20:00] VITALS: BP 149/91
[2021-05-12] VITALS: BP 128/67
[2021-05-12 04:00] VITALS: BP 121/69
[2021-05-12 06:12] LABS: CHOLESTEROL RISK RATIO 2.073 (<5)
[2021-05-12 08:00] VITALS: BP 132/74
[2021-05-12] MEDS ORDERED: ADDERALL 5 MG TAB PO SCH (09:00)
[2021-05-12] MEDS ORDERED: NIFE1TAB52 PO (09:15)
[2021-05-12] MEDS ORDERED: CHLO125TA PO (09:15)
[2021-05-12 09:31] VITALS: BP 132/74
[2021-05-12] MEDS: NIFEdipine 30 MG XL TAB PO SCH (09:31)
[2021-05-12] MEDS: ACETAMINOPHEN TAB 650MG DOSE (2X325MG) PO PRN (09:31)
[2021-05-12] MEDS: CHLORTHALIDONE 12.5MG PER 1/2 TABLET PO SCH (09:31)
--- NOTE | 2021-05-12 11:21 | DS.PDOC ---
Discharge Summary General Date of Admission May 10, 2021 at 22:48 Date of Discharge 05/12/2021 Attending Physician: FEMI RIVERO MD Discharge Summary PROCEDURES PERFORMED DURING STAY: None ADMITTING DIAGNOSES: Chest pain DISCHARGE DIAGNOSES: Hypertensive urgency Essential hypertension Anxiety/depression History of Von Willebrand dz istory of Gastroparesis History of Fibroids History of IBS COMPLICATIONS/CHIEF COMPLAINT: Hypertensive Urgency. HISTORY OF PRESENT ILLNESS: 36 yo W with on adderall at baseline who presented to the ED with 7/10 right sided chest pressure for 2 weeks for which she was previously evaluated in the ER on May 02 and told that it was due to a fibroadenoma and she is in the process of being referred to , however now also had 9/10 headaches that affect the front and back of her head, along with sensitivity to light and nausea without a hx of migranes and was found to be hypertensive in the ED to SBP >200. HOSPITAL COURSE: She was admitted for hypertensive urgency and has now been started on chlorthalidone and nifedipine with improvement in BP. She is now being discharged to closely follow up with her PCP. DISCHARGE MEDICATIONS: Please see below. ALLERGIES: Please see below. PHYSICAL EXAMINATION ON DISCHARGE: VITAL SIGNS: Please see below. GENERAL APPEARANCE: Awake, alert, oriented x 3. NAD HEENT: Atraumatic, normocephalic. Eyes are anicteric. Mucous membranes are pink and moist. CARDIOVASCULAR: NSR, regular rhythm, no noted murmurs LUNGS: CTAB ABDOMEN: Normoactive sounds, soft, nondistended. No rebound tenderness or guarding. MSK: No obvious deformities EXTREMITIES: No lower extremity edema, no apparent rashes/petechiae. NEUROLOGICAL: Awake, speech is clear, AOx3 PSYCHIATRIC: euthymic LABORATORY DATA: See below. IMAGING: Renal US: IMPRESSION: 1. Kidneys suggest medullary nephrocalcinosis and should be correlated clinically. Differential diagnosis may include dehydration. No hydronephrosis. Incidental 1.2 cm left lower pole renal cyst.. 2. Doppler interegation without sonographic evidence for renal arterial stenosis. Ct head: Brain: Normal. No hemorrhage. Unremarkable white matter. No mass effect. Cerebral ventricles: No ventriculomegaly. Paranasal sinuses: Visualized sinuses are unremarkable. No fluid levels. Mastoid air cells: Visualized mastoid air cells are well aerated. Bones/joints: Unremarkable. No acute fracture. Soft tissues: Unremarkable. IMPRESSION: No acute intracranial abnormality. CT chest: Lungs: Unremarkable. No consolidation. No masses. Pleural spaces: Unremarkable. No pneumothorax. No pleural effusion. Heart: Normal heart size. No pericardial effusion. Aorta: Unremarkable. No aortic aneurysm. Lymph nodes: No enlarged lymph nodes. Bones/joints: Unremarkable. No acute fracture. Soft tissues: Unremarkable. IMPRESSION: No acute findings. CXR: No acute findings. PROGNOSIS: Good ACTIVITY: As tolerated DIET: 2g sodium DISCHARGE PLAN: Home with nifedipine and chlorthalidone and close PCP follow up DISPOSITION: Home DISCHARGE INSTRUCTIONS: Home with nifedipine and chlorthalidone and close PCP follow up ITEMS TO FOLLOWUP ON ON OUTPATIENT: HTN DISCHARGE CONDITION: Stable TIME SPENT ON DISCHARGE: 33 minutes. Vital Signs/I&Os Vital Signs Date Time Temp Pulse Resp B/P (MAP) Pulse Ox O2 Delivery O2 Flow Rate FiO2 05/12/21 08:00 98.4 101 19 132/74 (93) 98 Room Air I&O- Last 24 Hours up to 6 AM 05/12/21 06:00 Intake Total 1485 ml Output Total 2225 ml Balance -740 ml Laboratory Data Labs 24H Laboratory Tests 2 05/11/21 15:44: Urine Color YELLOW, Urine Appearance HAZY, Urine pH 7.0, Urine Specific [place] 1.020, Urine Protein NEGATIVE, Urine Glucose (Auto)(UA) NEGATIVE, Urine Ketones (Auto) NEGATIVE, Urine Blood NEGATIVE, Urine Nitrite NEGATIVE, Urine Bilirubin NEGATIVE, Urine Urobilinogen 0.2, Urine Leukocyte Esterase (Auto) NEGATIVE, Urine WBC (Auto) 0, Urine RBC (Auto) 0, Urine Hyaline Casts (Auto) 0, Urine Bacteria (Auto) NEGATIVE, Urine Squamous Epithelial Cells 0, Urine Sperm (Auto) , Urine Opiates Screen NEGATIVE, Urine Methadone Screen NEGATIVE, Urine Barbiturates Screen NEGATIVE, Urine Phencyclidine Screen NEGATIVE, Urine Amphetamines Screen POSITIVEH, Urine Benzodiazepines Screen NEGATIVE, Urine Cocaine Metabolite Screen NEGATIVE, Urine Cannabinoids Screen POSITIVEH 05/12/21 05:26: Triglycerides Level 111, Total Cholesterol 170, LDL Cholesterol 66, Non-HDL Cholesterol (LDL + VLDL) 88, Total HDL Cholesterol 82, Cholesterol/HDL Ratio 2.073 Discharge Medications Scheduled Chlorthalidone (Chlorthalidone) 25 Mg Tablet, 12.5 MG PO DAILY Dextroamphetamine/Amphetamine (Adderall 10 mg Tablet) 10 Mg Tablet, 2 TAB PO BID, (Reported) TAKES IN THE MORNING AND AROUND NOONTIME Nifedipine (Nifedipine ER) 30 Mg Tab.er.24, 30 MG PO DAILY Scheduled PRN Aminocaproic Acid (Aminocaproic Acid) 250 Mg/1 Ml Solution, 1,250 MG PO QID PRN for BLEEDING, (Reported) USE FOR 3 DAYS WITH ANY MUCOSAL BLEEDING Clonazepam (Clonazepam) 0.5 Mg Tab, 0.5 MG PO BID PRN for ANXIETY, (Reported) Allergies Coded Allergies: Contrast Media (Verified Allergy, Unknown, 02/19/19) mother had allergic reaction amoxicillin (Verified Allergy, Unknown, 02/19/19) hives-pt has had penicillins since and okay but not amoxicillin aspirin (Verified Allergy, Unknown, 02/19/19) FEMI Azar MD May 12, 2021 09:14
== END 2021-05-12 11:47 | disposition home or self-care (01) | DRG 199 ==
LOC: M ED 19:33 → M ED INP 22:48 → ENRESERV 05-11 10:26 → M PCU 05-11 11:15
PROVIDERS: ADMIT Internal Medicine; ATTEND Internal Medicine
DX: I16.0 Hypertensive urgency (principal); D68.0 Von Willebrand disease; F41.9 Anxiety disorder, unspecified; F32.9 Major depressive disorder, single episode, unspecified; D25.9 Leiomyoma of uterus, unspecified; K58.9 Irritable bowel syndrome, unspecified; I10 Essential (primary) hypertension; F17.200 Nicotine dependence, unspecified, uncomplicated; F90.9 Attention-deficit hyperactivity disorder, unspecified type; E87.6 Hypokalemia; Z79.899 Other long term (current) drug therapy; Z88.0 Allergy status to penicillin; Z88.6 Allergy status to analgesic agent; Z91.041 Radiographic dye allergy status

== ENCOUNTER 2021-05-22 18:12 | Emergency (ER) | payer OTHER ==
[~2021-05-22] VITALS: Ht 157.5 cm; Wt 64.2 kg
[~2021-05-22 18:12] MED LIST changes: +ADDE10TA PO; +CHLO125TA PO; +NIFE1TAB52 PO
[2021-05-22] MEDS ORDERED: LORazepam 2 MG/ML VIAL IM ONE (18:30)
[2021-05-22] MEDS ORDERED: HALOPERIDOL 5MG/ML VIAL (J1630 PER 1) IM ONE (18:30)
[2021-05-22] MEDS ORDERED: diphenhydrAMINE 50MG/ML VIAL (J1200) IM ONE (18:30)
[2021-05-22 21:40] LABS: HEMOGLOBIN 15.3 g/dl (12.0-15.5); MEAN CORPUSCULAR HEMOGLOBIN 31.5 pg (27.0-33.0); MEAN CORPUSCULAR HGB CONC 33.3 g/dl (32.0-36.5); MEAN CORPUSCULAR VOLUME 94.8 fl (80.0-96.0); PLATELET COUNT, AUTOMATED 236 10^3/uL (150-450); RED BLOOD COUNT 4.85 10^6/uL (4.00-5.40); WHITE BLOOD COUNT 8.5 10^3/uL (4.0-10.0)
[2021-05-22 22:02] LABS: HCG, SERUM QUALITATIVE NEGATIVE (NEGATIVE)
[2021-05-22 22:10] LABS: ACETAMINOPHEN LEVEL < 2.0 UG/ML (10.0-30.0); ALT/SGPT 29 U/L (12-78); BILIRUBIN,DIRECT 0.1 MG/DL (0.0-0.2); BILIRUBIN,TOTAL 0.3 MG/DL (0.2-1.0); BLOOD UREA NITROGEN 14 MG/DL (7-18); CALCIUM LEVEL 8.8 MG/DL (8.5-10.1); CARBON DIOXIDE LEVEL 31 MEQ/L (21-32); CHLORIDE LEVEL 106 MEQ/L (98-107); CREATININE FOR GFR 0.54 MG/DL (0.55-1.30); ETHYL ALCOHOL (ETHANOL) 0.261 % (0.000-0.010); GLOMERULAR FILTRATION RATE > 60.0 (>60); GLUCOSE, FASTING 59 MG/DL (70-100); POTASSIUM SERUM 3.2 MEQ/L (3.5-5.1); SALICYLATE LEVEL 2.9 MG/DL (5.0-30.0); SODIUM LEVEL 142 MEQ/L (136-145); TOTAL PROTEIN 7.1 GM/DL (6.4-8.2)
[2021-05-23 06:47] LABS: AMPHETAMINES LEVEL URINE POSITIVE (NEGATIVE); BARBITURATES URINE NEGATIVE (NEGATIVE); BENZODIAZEPINES URINE NEGATIVE (NEGATIVE); CANNABINOIDS URINE POSITIVE (NEGATIVE); COCAINE METABOLITE URINE NEGATIVE (NEGATIVE); METHADONE URINE NEGATIVE (NEGATIVE); OPIATES URINE NEGATIVE (NEGATIVE); PHENCYCLIDINE URINE NEGATIVE (NEGATIVE)
[2021-05-23] MEDS ORDERED: POTASSIUM CHLORIDE 10 MEQ SR TABLET PO ONE (07:35)
[2021-05-23 10:36] VITALS: BP 168/100
== END 2021-05-23 10:38 | disposition home or self-care (01) ==
LOC: M ED 18:12
DX: F10.229 Alcohol dependence with intoxication, unspecified (principal); I10 Essential (primary) hypertension; F33.9 Major depressive disorder, recurrent, unspecified; K58.9 Irritable bowel syndrome, unspecified; D68.0 Von Willebrand disease; Z79.899 Other long term (current) drug therapy; Z88.0 Allergy status to penicillin; Z88.8 Allergy status to other drugs, medicaments and biological substances; Z91.041 Radiographic dye allergy status; F17.210 Nicotine dependence, cigarettes, uncomplicated
CPT/HCPCS: 36415; 80048; 80076; 80143; 80307; 82077; 84443; 84703; 85027; 96372; 99285; J1200; J1630; J2060

== ENCOUNTER 2021-07-23 20:04 | Emergency (ER) | payer OTHER ==
[~2021-07-23] VITALS: Ht 157.5 cm; Wt 71.4 kg
[2021-07-23 20:05] VITALS: BP 181/110
[2021-07-23] MEDS ORDERED: AZIT500T5 (20:31)
[2021-07-23] MEDS ORDERED: PRED20TA (20:31)
== END 2021-07-24 00:40 | disposition left against medical advice (07) ==
LOC: M ED 20:04
DX: Z53.29 Procedure and treatment not carried out because of patient's decision for other reasons (principal)

== ENCOUNTER → 2021-12-29 | Outpatient (REF) | payer OTHER ==
[~2021-12-29] MED LIST changes: +AZIT500T5; +PRED20TA
== END ==
LOC: M WUC 20:19
PROVIDERS: ATTEND Physician Assistant
DX: R30.0 Dysuria (principal)

== ENCOUNTER → 2022-01-10 | Outpatient (CLI) | payer OTHER | LOC: M WUC 11:49 | PROVIDERS: ATTEND Physician Assistant | DX: S93.401A Sprain of unspecified ligament of right ankle, initial encounter (principal); W18.30XA Fall on same level, unspecified, initial encounter; Y92.009 Unspecified place in unspecified non-institutional (private) residence as the place of occurrence of the external cause ==

== ENCOUNTER 2022-01-15 04:31 | Emergency (ER) | payer OTHER ==
[~2022-01-15] VITALS: Ht 157.5 cm; Wt 64.5 kg
[2022-01-15 10:25] LABS: HEMATOCRIT 42.1 % (36.0-47.0); HEMOGLOBIN 14.1 g/dl (12.0-15.5); MEAN CORPUSCULAR HEMOGLOBIN 30.2 pg (27.0-33.0); MEAN CORPUSCULAR HGB CONC 33.5 g/dl (32.0-36.5); MEAN CORPUSCULAR VOLUME 90.1 fl (80.0-96.0); PLATELET COUNT, AUTOMATED 221 10^3/uL (150-450); RED BLOOD COUNT 4.67 10^6/uL (4.00-5.40); WHITE BLOOD COUNT 7.6 10^3/uL (4.0-10.0)
[2022-01-15 11:04] LABS: ACETAMINOPHEN LEVEL < 2.0 UG/ML (10.0-30.0); ALBUMIN 4.2 GM/DL (3.2-5.2); ALT/SGPT 34 U/L (12-78); BILIRUBIN,DIRECT 0.1 MG/DL (0.0-0.2); BILIRUBIN,TOTAL 0.3 MG/DL (0.2-1.0); BLOOD UREA NITROGEN 10 MG/DL (7-18); CALCIUM LEVEL 8.8 MG/DL (8.5-10.1); CARBON DIOXIDE LEVEL 23 MEQ/L (21-32); CHLORIDE LEVEL 109 MEQ/L (98-107); CREATININE FOR GFR 0.53 MG/DL (0.55-1.30); ETHYL ALCOHOL (ETHANOL) 0.106 % (0.000-0.010); GLOMERULAR FILTRATION RATE > 60.0 (>60); GLUCOSE, FASTING 80 MG/DL (70-100); POTASSIUM SERUM 3.6 MEQ/L (3.5-5.1); SODIUM LEVEL 144 MEQ/L (136-145); TOTAL PROTEIN 7.6 GM/DL (6.4-8.2)
[2022-01-15 12:20] LABS: AMPHETAMINES LEVEL URINE POSITIVE (NEGATIVE); BARBITURATES URINE NEGATIVE (NEGATIVE); BENZODIAZEPINES URINE NEGATIVE (NEGATIVE); CANNABINOIDS URINE POSITIVE (NEGATIVE); COCAINE METABOLITE URINE NEGATIVE (NEGATIVE); METHADONE URINE NEGATIVE (NEGATIVE); OPIATES URINE NEGATIVE (NEGATIVE); PHENCYCLIDINE URINE NEGATIVE (NEGATIVE)
[2022-01-15 12:50] VITALS: BP 151/79
== END 2022-01-15 12:52 | disposition home or self-care (01) ==
LOC: M ED 04:31
DX: S93.411A Sprain of calcaneofibular ligament of right ankle, initial encounter (principal); Y04.8XXA Assault by other bodily force, initial encounter; Y92.009 Unspecified place in unspecified non-institutional (private) residence as the place of occurrence of the external cause; Y93.9 Activity, unspecified; Y99.9 Unspecified external cause status; F10.120 Alcohol abuse with intoxication, uncomplicated; F19.10 Other psychoactive substance abuse, uncomplicated; M79.7 Fibromyalgia; K58.8 Other irritable bowel syndrome; E03.9 Hypothyroidism, unspecified; I10 Essential (primary) hypertension; D68.0 Von Willebrand disease; F32.A Depression, unspecified; F41.9 Anxiety disorder, unspecified; Z88.0 Allergy status to penicillin; Z88.6 Allergy status to analgesic agent; Z91.041 Radiographic dye allergy status; F17.210 Nicotine dependence, cigarettes, uncomplicated

== ENCOUNTER 2023-03-02 19:56 | Emergency (ER) | payer OTHER, SELFPAY ==
[~2023-03-02] VITALS: Ht 157.5 cm; Wt 70.0 kg
[~2023-03-02 19:56] MED LIST changes: -FLUO10TA2; +FLUO1TAB
[2023-03-02] MEDS ORDERED: clonazePAM 0.5 MG TAB PO ONE (21:25)
[2023-03-02 21:45] LABS: BASO % 0.3 % (0.0-1.0); EOS # 0.1 10^3/uL (0.0-0.5); HEMATOCRIT 47.2 % (36.0-47.0); HEMOGLOBIN 15.1 g/dl (12.0-15.5); LYMPH % 15.9 % (24.0-44.0); MEAN CORPUSCULAR HEMOGLOBIN 29.3 pg (27.0-33.0); MEAN CORPUSCULAR VOLUME 91.7 fl (80.0-96.0); MONO # 0.8 10^3/uL (0.0-0.8); MONO % 6.7 % (2.0-8.0); NEUTROPHILS # 9.5 10^3/uL (1.5-8.5); NEUTROPHILS % 75.6 % (36.0-66.0); PLATELET COUNT, AUTOMATED 288 10^3/uL (150-450); RED BLOOD COUNT 5.15 10^6/uL (4.00-5.40); WHITE BLOOD COUNT 12.5 10^3/uL (4.0-10.0)
[2023-03-02 22:22] LABS: BLOOD UREA NITROGEN 10 MG/DL (9-23); CALCIUM LEVEL 9.8 MG/DL (8.5-10.1); CARBON DIOXIDE LEVEL 26 MMOL/L (20-31); CHLORIDE LEVEL 104 MMOL/L (98-107); CK-MB VALUE MASS 1.4 NG/ML (<3.6); GLOMERULAR FILTRATION RATE > 60.0 (>60); GLUCOSE, FASTING 72 MG/DL (60-100); POTASSIUM SERUM 3.8 MMOL/L (3.5-5.1); SODIUM LEVEL 139 MMOL/L (136-145)
[2023-03-02 22:23] LABS: CPK CREATINE PHOSPHOKINASE 52 U/L (34-145); MB/CK RELATIVE INDEX 2.69 (< OR =4)
[2023-03-03] MEDS ORDERED: KLON0.5T PO (00:50)
[2023-03-03 01:00] VITALS: BP 167/99
== END 2023-03-03 01:18 | disposition home or self-care (01) ==
LOC: M ED 19:56
DX: I10 Essential (primary) hypertension (principal); F41.9 Anxiety disorder, unspecified; F90.9 Attention-deficit hyperactivity disorder, unspecified type; Z88.1 Allergy status to other antibiotic agents; Z88.6 Allergy status to analgesic agent; Z91.041 Radiographic dye allergy status; Z79.899 Other long term (current) drug therapy

== ENCOUNTER 2024-04-03 08:59 | Emergency (ER) | payer OTHER ==
[~2024-04-03] VITALS: Ht 157.5 cm; Wt 73.5 kg
[~2024-04-03 08:59] MED LIST changes: +KLON0.5T8 PO
[2024-04-03 10:17] LABS: BASO # 0.1 10^3/uL (0.0-0.2); BASO % 0.5 % (0.0-1.0); EOS # 0.4 10^3/uL (0.0-0.5); HEMATOCRIT 51.6 % (36.0-47.0); HEMOGLOBIN 16.8 g/dl (12.0-15.5); LYMPH # 1.5 10^3/uL (1.5-5.0); LYMPH % 11.4 % (24.0-44.0); MEAN CORPUSCULAR HGB CONC 32.6 g/dl (32.0-36.5); MONO # 1.1 10^3/uL (0.0-0.8); MONO % 8.3 % (2.0-8.0); NEUTROPHILS # 9.9 10^3/uL (1.5-8.5); NEUTROPHILS % 76.6 % (36.0-66.0); PLATELET COUNT, AUTOMATED 244 10^3/uL (150-450); WHITE BLOOD COUNT 12.8 10^3/uL (4.0-10.0)
[2024-04-03] MEDS: methylPREDNISolone 125MG 2ML VIAL IV ONE (10:18)
[2024-04-03] MEDS: FAMOTIDINE IV BAG 20 MG in IV 1 EA IV ONE (10:18)
[2024-04-03] MEDS ORDERED: BENA25CA4 PO (10:39)
[2024-04-03 10:41] LABS: BLOOD UREA NITROGEN 11 MG/DL (9-23); CARBON DIOXIDE LEVEL 27 MMOL/L (20-31); CHLORIDE LEVEL 104 MMOL/L (98-107); CREATININE FOR GFR 0.75 MG/DL (0.55-1.30); GLOMERULAR FILTRATION RATE > 60.0 (>60); GLUCOSE, FASTING 101 MG/DL (60-100); POTASSIUM SERUM 4.1 MMOL/L (3.5-5.1); SODIUM LEVEL 136 MMOL/L (136-145)
[2024-04-03] MEDS: diphenhydrAMINE 50MG/ML VIAL IV STA (11:41)
[2024-04-03] MEDS: NS 1,000 ML IV ONE (11:41)
[2024-04-03] MEDS ORDERED: FAMO20TA PO (12:45)
[2024-04-03] MEDS ORDERED: PRED20TA PO (12:45)
[2024-04-03 12:50] VITALS: BP 169/101; TEMP 98.1; O2SAT 99
== END 2024-04-03 12:55 | disposition home or self-care (01) ==
LOC: M ED 08:59
DX: L50.9 Urticaria, unspecified (principal); I10 Essential (primary) hypertension; M32.9 Systemic lupus erythematosus, unspecified; F17.210 Nicotine dependence, cigarettes, uncomplicated; F19.10 Other psychoactive substance abuse, uncomplicated; Z88.1 Allergy status to other antibiotic agents; Z88.8 Allergy status to other drugs, medicaments and biological substances; Z91.041 Radiographic dye allergy status; Z79.899 Other long term (current) drug therapy; Z79.1 Long term (current) use of non-steroidal anti-inflammatories (NSAID); Z79.51 Long term (current) use of inhaled steroids
CPT/HCPCS: 80048; 85025; 96361; 96365; 96374; 96375; 99284; J1200; J2919; S0028

== ENCOUNTER 2024-04-04 10:41 | Inpatient (IN) | payer OTHER ==
[~2024-04-04] VITALS: Ht 157.5 cm; Wt 74.8 kg
[~2024-04-04 10:41] MED LIST changes: +BENA25CA4 PO; +FAMO20TA PO
[2024-04-04] MEDS: dexAMETHasone 20MG/5ML VIAL IV ONE (11:58)
[2024-04-04] MEDS: CETIRIZINE (ZyrTEC) 10 MG TAB PO ONE (11:58)
[2024-04-04] MEDS: LORazepam 1 MG TAB PO STA (13:44)
[2024-04-04 14:30] LABS: HEMATOCRIT 47.9 % (36.0-47.0); HEMOGLOBIN 15.7 g/dl (12.0-15.5); MEAN CORPUSCULAR HEMOGLOBIN 29.2 pg (27.0-33.0); MEAN CORPUSCULAR HGB CONC 32.8 g/dl (32.0-36.5); MEAN CORPUSCULAR VOLUME 89.2 fl (80.0-96.0); PLATELET COUNT, AUTOMATED 206 10^3/uL (150-450); RED BLOOD COUNT 5.37 10^6/uL (4.00-5.40); WHITE BLOOD COUNT 19.9 10^3/uL (4.0-10.0)
[2024-04-04] MEDS ORDERED: MAALOX 30 ML SUSP *UDC PO PRN (14:50)
[2024-04-04] MEDS ORDERED: ACETAMINOPHEN TAB 650MG DOSE (2X325MG) PO PRN (14:50)
[2024-04-04] MEDS ORDERED: MOM 30ML SUSPENSION UDC PO PRN (14:50)
[2024-04-04] MEDS ORDERED: PILL CUTTER 1 EACH XX ONE (14:55)
[2024-04-04] MEDS: **hydrALAZINE HCL** 25 MG TAB PO STA (14:58)
[2024-04-04 15:10] LABS: BLOOD UREA NITROGEN 14 MG/DL (9-23); CALCIUM LEVEL 9.4 MG/DL (8.5-10.1); CARBON DIOXIDE LEVEL 16 MMOL/L (20-31); CHLORIDE LEVEL 106 MMOL/L (98-107); CREATININE FOR GFR 0.58 MG/DL (0.55-1.30); GLOMERULAR FILTRATION RATE > 60.0 (>60); GLUCOSE, FASTING 173 MG/DL (60-100); POTASSIUM SERUM 4.5 MMOL/L (3.5-5.1); SODIUM LEVEL 136 MMOL/L (136-145)
[2024-04-04] MEDS ORDERED: HOME MED LIST COMPLETE! XX SCH (15:20)
[2024-04-04 15:47] LABS: LYMPHOCYTES 2 % (16-44); NEUTROPHILS 98 % (28-66)
[2024-04-04 15:48] LABS: PLATELET ESTIMATE NORMAL (NORMAL)
[2024-04-04] MEDS ORDERED: ALBUTEROL SULFATE 2.5MG/0.5ML INH NEB SOLN NEB PRN (16:25)
[2024-04-04 16:48] VITALS: BP 180/96; TEMP 98.7; O2SAT 98
[2024-04-04 17:00] VITALS: O2SAT 97
[2024-04-04] MEDS: diphenhydrAMINE 50MG/ML VIAL IV PRN (17:25)
[2024-04-04] MEDS: ALPRAZolam 0.25 MG TAB PO PRN (17:25)
[2024-04-04] MEDS: LevoFLOXacin 750 MG TABLET PO ONE (17:26)
[2024-04-04 17:42] LABS: THYROID STIMULATING HORMONE 0.755 uIU/ML (0.55-4.78)
[2024-04-04 17:43] LABS: FREE T4 0.86 NG/DL (0.89-1.76)
[2024-04-04 18:00] VITALS: O2SAT 100
[2024-04-04] MEDS: dexAMETHasone 20MG/5ML VIAL IV SCH (18:17)
[2024-04-04] MEDS: NS 1,000 ML IV ONE (18:18)
[2024-04-04 18:45] LABS: BLOOD UREA NITROGEN 15 MG/DL (9-23); CALCIUM LEVEL 9.3 MG/DL (8.5-10.1); CARBON DIOXIDE LEVEL 25 MMOL/L (20-31); CHLORIDE LEVEL 105 MMOL/L (98-107); CREATININE FOR GFR 0.75 MG/DL (0.55-1.30); GLOMERULAR FILTRATION RATE > 60.0 (>60); GLUCOSE, FASTING 136 MG/DL (60-100); POTASSIUM SERUM 4.2 MMOL/L (3.5-5.1); SODIUM LEVEL 138 MMOL/L (136-145)
[2024-04-04 19:32] VITALS: BP 164/90; TEMP 97.7; O2SAT 97
[2024-04-04] MEDS: FAMOTIDINE 20 MG TAB PO SCH (21:13)
[2024-04-04] MEDS: **hydrALAZINE** 10 MG TAB PO SCH (21:16)
[2024-04-04 23:00] VITALS: BP 148/94; TEMP 98.4; O2SAT 98
[2024-04-05] VITALS (18 sets, daily range): BP systolic 129–192; BP diastolic 68–98; TEMP 97.5–98.6; O2SAT 97–100
[2024-04-05 06:19] LABS: BASO # 0.1 10^3/uL (0.0-0.2); BASO % 0.2 % (0.0-1.0); EOS # 0.1 10^3/uL (0.0-0.5); EOS % 0.3 % (0.0-3.0); HEMATOCRIT 42.2 % (36.0-47.0); LYMPH # 1.2 10^3/uL (1.5-5.0); LYMPH % 4.8 % (24.0-44.0); MEAN CORPUSCULAR HEMOGLOBIN 28.8 pg (27.0-33.0); MONO # 1.5 10^3/uL (0.0-0.8); MONO % 6.1 % (2.0-8.0); NEUTROPHILS # 21.1 10^3/uL (1.5-8.5); NEUTROPHILS % 87.6 % (36.0-66.0); PLATELET COUNT, AUTOMATED 218 10^3/uL (150-450); RED BLOOD COUNT 4.69 10^6/uL (4.00-5.40); WHITE BLOOD COUNT 24.1 10^3/uL (4.0-10.0)
[2024-04-05 06:28] LABS: HEMOGLOBIN 13.5 g/dl (12.0-15.5)
[2024-04-05] MEDS: LevoFLOXacin 750 MG TABLET PO SCH (06:29)
[2024-04-05] MEDS: LEVOTHYROXINE 12.5MCG PER 1/2 TAB (0.0125MG) PO SCH (12:44)
[2024-04-05] MEDS: **hydrALAZINE** 10 MG TAB PO SCH (16:12)
[2024-04-06] VITALS (16 sets, daily range): BP systolic 158–167; BP diastolic 80–96; TEMP 98–98.2; O2SAT 97–100
[2024-04-06] MEDS ORDERED: ONDANSETRON 4MG 2ML VIAL IV PRN (02:20)
[2024-04-06] MEDS: CETIRIZINE (ZyrTEC) 10 MG TAB PO ONE (04:10)
[2024-04-06 06:02] LABS: BASO # 0.1 10^3/uL (0.0-0.2); BASO % 0.5 % (0.0-1.0); EOS # 1.3 10^3/uL (0.0-0.5); EOS % 8.4 % (0.0-3.0); HEMATOCRIT 42.5 % (36.0-47.0); HEMOGLOBIN 13.5 g/dl (12.0-15.5); LYMPH # 2.4 10^3/uL (1.5-5.0); LYMPH % 15.6 % (24.0-44.0); MEAN CORPUSCULAR HGB CONC 31.8 g/dl (32.0-36.5); MEAN CORPUSCULAR VOLUME 91.2 fl (80.0-96.0); MONO # 1.3 10^3/uL (0.0-0.8); MONO % 8.8 % (2.0-8.0); NEUTROPHILS % 66.2 % (36.0-66.0); PLATELET COUNT, AUTOMATED 185 10^3/uL (150-450); RED BLOOD COUNT 4.66 10^6/uL (4.00-5.40); WHITE BLOOD COUNT 15.1 10^3/uL (4.0-10.0)
[2024-04-06 06:31] LABS: BLOOD UREA NITROGEN 14 MG/DL (9-23); CALCIUM LEVEL 9.2 MG/DL (8.5-10.1); CARBON DIOXIDE LEVEL 25 MMOL/L (20-31); CHLORIDE LEVEL 109 MMOL/L (98-107); CREATININE FOR GFR 0.67 MG/DL (0.55-1.30); GLOMERULAR FILTRATION RATE > 60.0 (>60); GLUCOSE, FASTING 73 MG/DL (60-100); MAGNESIUM LEVEL 1.6 MG/DL (1.8-2.4); POTASSIUM SERUM 3.7 MMOL/L (3.5-5.1); SODIUM LEVEL 142 MMOL/L (136-145)
[2024-04-06] MEDS ORDERED: IPRATROPIUM 0.5MG/ALBUTEROL 2.5MG INH SOL UD 3ML (DUONEB) NEB PRN (11:25)
[2024-04-06] MEDS: MAGNESIUM OXIDE 400MG TAB (MAG-OX) PO ONE (11:31)
[2024-04-06] MEDS: methylPREDNISolone 40MG 1ML VIAL IV STA (11:31)
[2024-04-06] MEDS: CETIRIZINE (ZyrTEC) 10 MG TAB PO SCH (17:02)
[2024-04-06] MEDS: diphenhydrAMINE 50MG/ML VIAL IV PRN (17:02)
[2024-04-06] MEDS: amLODIPine 5 MG TAB PO SCH (18:39)
[2024-04-06] MEDS: methylPREDNISolone 40MG 1ML VIAL IV SCH (20:27)
[2024-04-06] MEDS: MAGNESIUM OXIDE 400MG TAB (MAG-OX) PO SCH (20:27)
[2024-04-06] MEDS: diphenhydrAMINE CREAM 30GM TOP PRN (23:06)
[2024-04-07] VITALS (7 sets, daily range): BP systolic 142–146; BP diastolic 58–66; TEMP 97.2–98.7; O2SAT 98–99
[2024-04-07] MEDS ORDERED: MAGN400T2 PO (11:09)
[2024-04-07] MEDS ORDERED: FAMO20TA PO (11:09)
[2024-04-07] MEDS ORDERED: AMLO1TAB24 PO (11:09)
[2024-04-07] MEDS ORDERED: PRED10TA2 PO (11:09)
[2024-04-07] MEDS ORDERED: LEVO25TA5 PO (11:09)
[2024-04-07] MEDS ORDERED: VENTAER INH (11:09)
[2024-04-07] MEDS ORDERED: DIPHCR TOP (11:09)
[2024-04-07] MEDS ORDERED: CETI10TA PO (11:09)
== END 2024-04-07 12:03 | disposition home or self-care (01) | DRG 811 ==
LOC: M ED 10:41 → EDBD 10:41 → M ED INP 10:42 → EEVIPCON 12:07 → OBSVTOIN 12:07 → M PCU 16:13
PROVIDERS: ADMIT Student in an Organized Health Care Education/Training Program; ATTEND Student in an Organized Health Care Education/Training Program
DX: T80.69XA Other serum reaction due to other serum, initial encounter (principal); I10 Essential (primary) hypertension; M79.7 Fibromyalgia; E03.9 Hypothyroidism, unspecified; F32.A Depression, unspecified; F41.9 Anxiety disorder, unspecified; K31.84 Gastroparesis; M54.50 Low back pain, unspecified; R21 Rash and other nonspecific skin eruption; I16.0 Hypertensive urgency; N39.0 Urinary tract infection, site not specified; L29.9 Pruritus, unspecified; Z97.5 Presence of (intrauterine) contraceptive device; Z88.0 Allergy status to penicillin; Z88.6 Allergy status to analgesic agent; Z91.041 Radiographic dye allergy status